=== PATIENT | male | born 1950 | race Caucasian/White ===

== ENCOUNTER 2016-11-10 10:02 | Day surgery (SDC) | payer MEDICARE, OTHER ==
[~2016-11-10] VITALS: Ht 160 cm; Wt 92.7 kg
[~2016-11-10 10:02] MED LIST: AGGR20025 PO; AMLO5 PO; ASPI81 PO; ASPI81TA82 PO; ATOR20TA PO; CELE10TA9 PO; DIOV160T3 PO; PROP40TA27 PO
[2016-11-10 10:30] VITALS: BP 160/86; PULSE 54; RESP 18; TEMP 97.9; O2SAT 98
[2016-11-10] MEDS ORDERED: diphenhydrAMINE HCL 50 MG CAP PO SCH (10:30)
[2016-11-10] MEDS ORDERED: NS 1000P @30 MLS/HR (KVO) IV SCH (10:30)
[2016-11-10] MEDS ORDERED: NITR1SUB3 SL (10:42)
[2016-11-10] MEDS ORDERED: VITATAB43 PO (10:42)
[2016-11-10] MEDS ORDERED: CITA10TA4 PO (10:42)
[2016-11-10] MEDS ORDERED: AGGR20025 PO (10:42)
[2016-11-10] MEDS ORDERED: VALS160T6 PO (10:42)
[2016-11-10] MEDS ORDERED: AMLO-131 PO (10:42)
[2016-11-10] MEDS ORDERED: PROP20TA3 PO (10:42)
[2016-11-10] MEDS ORDERED: ASPI1TAB69 PO (10:42)
[2016-11-10 10:50] LABS: AUTOMATED NEUTROPHIL # 4.7 TH/MM3 (1.8-7.7); BASOPHIL % 0.4 % (0.0-2.0); EOSINOPHIL # 0.2 TH/MM3 (0-0.4); EOSINOPHIL % 2.3 % (0.0-4.0); HEMATOCRIT 43.5 % (39.0-51.0); HEMO FLAGS DIFF FINAL; LYMPH % 31.6 % (9.0-44.0); LYMPHOCYTE # 2.7 TH/MM3 (1.0-4.8); MEAN CELL VOLUME 90.2 FL (80.0-100.0); MEAN CORPUSCULAR HEMOGLOBIN 30.8 PG (27.0-34.0); MEAN CORPUSCULAR HGB CONC 34.2 % (32.0-36.0); MONO % 10.7 % (0.0-8.0); PLATELET COUNT 252 TH/MM3 (150-450); RED BLOOD COUNT 4.82 MIL/MM3 (4.50-5.90); RED CELL DISTRIBUTION WIDTH 13.7 % (11.6-17.2); WHITE BLOOD COUNT 8.6 TH/MM3 (4.0-11.0)
[2016-11-10 11:03] LABS: APTT (PATIENT) 27.9 SEC (24.3-30.1); PROTHROMBIN TIME - PATIENT 10.8 SEC (9.8-11.6)
[2016-11-10 11:06] LABS: BICARBONATE 27.9 MEQ/L (21.0-32.0); POTASSIUM 3.7 MEQ/L (3.5-5.1)
[2016-11-10] MEDS ORDERED: IOHEXOL 350 MG/ML 50 ML BTL (for Cath Lab) OTHER ONE (11:15)
[2016-11-10] MEDS ORDERED: IOHEXOL 350 MG/ML 100 ML BTL (for Cath Lab) OTHER ONE (11:15)
[2016-11-10] MEDS ORDERED: MIDAZOLAM HCL 2 MG/2 ML VIAL ONE ×2 (11:23→12:09)
[2016-11-10] MEDS ORDERED: HEPARIN-NS/PF INJ 500 ML ONE (11:23)
[2016-11-10] MEDS ORDERED: ONDANSETRON HCL 4 MG/2 ML VIAL IV PRN (13:00)
[2016-11-10] MEDS ORDERED: ATROPINE SULFATE 1 MG/ML VIAL IV PRN (13:00)
[2016-11-10] MEDS ORDERED: SODIUM CHLOR 0.9% 1000 ML INJ 1,000 ML IV SCH (13:00)
[2016-11-10] MEDS ORDERED: MISC INFORMATION XX ONE (13:00)
--- NOTE | 2016-11-10 13:15 | MA ---
cc: ROSIBELHUDSON Correa DATE 11/10/2016 DATE OF 1950 PROCEDURE PERFORMED 1. Left heart catheterization 2. Selective right and left coronary angiography. 3. Selective saphenous vein graft and BETHEA angiography 4. Right common femoral artery angiography. 5. Aortogram INDICATION Angina with known coronary artery disease status post CABG and re-do. DESCRIPTION OF PROCEDURE Consent signed. The patient was brought into the cardiac flue dust laborer in fasting state. The right groin was prepped and draped in a sterile fashion. Using 1% lidocaine for local anesthesia and a micropuncture kit, a 5-[place]izen [place] sheath was inserted into the right common femoral artery. Right common femoral artery angiography was performed to confirm position of the sheath. Then selective right and left coronary angiography was performed with JR-4 and a JL-4 diagnostic catheters followed by angiography to the saphenous vein grafts and the left internal mammary artery. Angiography was taken in multiple views. A JR-4 over the wire was introduced into the left ventricle over a wire followed by pressure recordings and pullback. Also an angled pigtail was put in the ascending aorta and an aortogram was done. The patient tolerated the procedure well without complications. Estimated blood loss less than 50 cc. Total contrast 140 cc. The right groin access site was closed with a Vascade closure device. RESULTS LEFT VENTRICLE The left ventricular pressure was 138/12 with an LVEDP of 21. The aortic pressure was 133/63 with a mean pressure of 92. There was no gradient upon pullback from the left ventricle to the aorta. ANGIOGRAPHY 1. Left main: Patent with JUSTIN-3 flow. 2. LAD: 100% occluded. 3. Left circumflex artery: There is a 40% lesion proximally. OM-2 is 100% occluded, OM-1 and OM-3 are diffusely diseased. 4. Right coronary artery: Completely occluded. 5. Ramus: Completely 100% occluded. GRAFT ANGIOGRAPHY 1. BETHEA to the LAD patent. The anastomosis is at the level of the mid LAD segment, thereafter the LAD is patent with distal minimal luminal irregularities and little bit of flow to a diagonal which is diffusely diseased and to the first septal. 2. SVG to ramus is a Y-configuration giving blood supply to the ramus and OM2. This grafts is patent on both directions with JUSTIN-III flow. 3. SVG to right coronary artery is 100% occluded. CONCLUSION 1. Severe [place] vessel coronary artery disease. 2. Three out of four grafts patent. 3. Elevated LVEDP. RECOMMENDATIONS Aggressive medical management for secondary prevention of CAD and optimization for ischemic heart disease. The patient is already on a beta-blockers with adequate heart rate. Start Imdur, long-acting nitrate, and continue statins, TAMMIE inhibitor and aspirin. The patient will be going to the DOC unit for post cath care. If the patient is stable after bed rest, he will be discharged home with follow up with Dr. Wilson as an outpatient. MD KRISSY Perera/BAKARI /12:51 PM /1:06 PM MTDD
[2016-11-10] MEDS ORDERED: ACETAMINOPHEN 325 MG TAB PO PRN (16:15)
--- NOTE | 2016-11-10 20:41 | EKG ---
Date Performed: 11/10/2016 Time Performed: 10:45:58 PTAGE: 66 years EKG: Sinus bradycardia. Nonspecific ST-T wave changes Compared to prior tracing no significant c nallelye Abnormal ECG PREVIOUS TRACING : 12/09/2015 07.44 DOCTOR: Lino Alexander Interpretating Date/Time 11/10/2016 20:39:42
== END 2016-11-10 17:30 | disposition home or self-care (01) ==
LOC: HCAT 10:02 → HDIC 10:03 → HCAT 17:30
PROVIDERS: ATTEND Radiology Vascular & Interventional Radiology
DX: I25.110 Atherosclerotic heart disease of native coronary artery with unstable angina pectoris (principal); I10 Essential (primary) hypertension; E78.00 Pure hypercholesterolemia, unspecified; Z95.1 Presence of aortocoronary bypass graft
CPT/HCPCS: 80048; 85025; 85610; 85730; 93005; 93454; 93567; C1760; C1769; C1893; G0269; J1644; J2250; J3010; Q9967

== ENCOUNTER 2017-07-14 10:42 | Emergency (ER) | payer MEDICARE, OTHER ==
[~2017-07-14] VITALS: Ht 172.7 cm; Wt 97.0 kg
[~2017-07-14 10:42] MED LIST changes: +AMLO-131 PO; -AMLO5 PO; +ASPI1TAB69 PO; -ASPI81 PO; -ASPI81TA82 PO; -ATOR20TA PO; -CELE10TA9 PO; +CITA10TA4 PO; -DIOV160T3 PO; +NITR1SUB3 SL; +PROP20TA3 PO; -PROP40TA27 PO; +VALS160T6 PO; +VITATAB43 PO
[2017-07-14 10:55] VITALS: BP 151/79; PULSE 77; RESP 16; TEMP 99.1
[2017-07-14] MEDS ORDERED: MECLIZINE HCL 25 MG TAB PO ONE (11:15)
[2017-07-14] MEDS ORDERED: ONDANSETRON ODT 4 MG TAB PO/SL ONE (11:15)
[2017-07-14] MEDS ORDERED: SODIUM CHLORIDE 0.9% FLUSH 10 ML FLUSH IVF PRN (11:15)
[2017-07-14] MEDS ORDERED: MECL-62 PO (11:19)
--- NOTE | 2017-07-14 11:20 | PD ---
HPI . Lightheadedness Chief Complaint: Dizziness Time Seen by Provider: 11:04 Travel History International Travel<30 days: No Contact w/Intl Traveler<30days: No Traveled to known affect area: No History of Present Illness HPI Patient presents with a 2 day history of lightheadedness. His symptoms wax and wane. They did not ever go completely away. Symptoms are exacerbated by going from the lying to the sitting or the sitting to the standing position. Symptoms are also exacerbated by head movement. Associated symptoms include nausea and palpitations. Symptoms have been mild. He reports a remote history of vertigo and states that the symptoms are similar. He has not taken anything for it prior to arrival. PFSH Past Medical History Arthritis: Yes Anxiety: Yes Depression: Yes Cancer: Yes (SKIN) Cardiac Catheterization: Yes Cardiovascular Problems: Yes High Cholesterol: Yes Chest Pain: Yes Cerebrovascular Accident: Yes Coronary Artery Disease: Yes Diabetes: Yes (PRE) Diminished Hearing: No Endocrine: No Gastrointestinal Disorders: No Genitourinary: No Hypertension: Yes Immune Disorder: No Musculoskeletal: No Neurologic: No Psychiatric: Yes Reproductive: No Respiratory: No Immunizations Current: No Myocardial Infarction: Yes Past Surgical History Cardiac Surgery: Yes (CABG 2001, 1992) Coronary Artery Bypass Graft: Yes (IN 1992 X 3 ,IN 2001 X 4 .) Other Surgery: Yes Social History Alcohol Use: Yes (DRINK 3 X A WEEK) Tobacco Use: No (QUIT 14 YEARS AGO ) Substance Use: No Allergies-Medications (Allergen,Severity, Reaction): Coded Allergies: clopidogrel (Unverified Allergy, Severe, Rash, 07/14/17) SEVERE ITCHING penicillin G (Unverified Allergy, Mild, A CHILD, 07/14/17) Reported Meds & Prescriptions Reported Meds & Active Scripts Active Meclizine (Meclizine HCl) 25 Mg Tab 25 Mg PO TID PRN Reported Gabapentin 100 Mg Cap 100 Mg PO TID Ranexa ER 12 HR (Ranolazine) 500 Mg Tab 500 Mg PO BID Isosorbide Mononitrate ER (Isosorbide Mononitrate) 30 Mg Kim 30 Mg PO DAILY B-12 (Cyanocobalamin) 1,000 Mcg Subl 1,000 Mcg SL DAILY Dipyridamole-Aspirin 200-25 Mg Cap 1 Cap PO BID Valsartan-Hydrochlorothiazide 160-25 Mg Tab 1 Tab PO DAILY Propranolol (Propranolol HCl) 20 Mg Tab 20 Mg PO Q8HR Nitroglycerin SL (Nitroglycerin) 0.4 Mg Subl 0.4 Mg SL DIRECTED PRN ONE TABLET UNDER THE TONGUE NEEDED FOR CHEST PAIN, MAY REPEAT EVERY FIVE MINUTES FOR A TOTAL OF 3 DOSES OR CALL 911 IF NO RELIEF Citalopram (Citalopram Hydrobromide) 10 Mg Tab 10 Mg PO DAILY Amlodipine-Atorvastatin 10-20 Mg Tab 1 Tab PO DAILY Review of Systems Except as stated in HPI: all other systems reviewed are Neg General / Constitutional: No: Fever, Chills Eyes: No: Diploplia, Blurred Vision HENT: Positive: Lightheadedness, No: Headaches Cardiovascular: Positive: Palpitations, No: Chest Pain or Discomfort Respiratory: No: Shortness of Breath Gastrointestinal: Positive: Nausea, No: Vomiting, Diarrhea, Abdominal Pain Neurologic: Positive: Dizziness, Tremor (chronic intention tremor), No: Headache, Change in Mentation, Slurred Speech Physical Exam Narrative GENERAL: Healthy-appearing man who is awake and alert in no acute distress. SKIN: warm/dry. Good color. HEAD: Normocephalic. Atraumatic. EYES: Pupils equal and round. No scleral icterus. No injection or drainage. No nystagmus. ENT: No nasal bleeding or discharge. Mucous membranes pink and moist. NECK: Trachea midline. Full range of motion without pain.. CARDIOVASCULAR: Regular rate and rhythm. Heart sounds are normal. RESPIRATORY: No accessory muscle use. Clear to auscultation. Breath sounds equal bilaterally. GASTROINTESTINAL: Abdomen soft. Nontender. Bowel sounds present. Nondistended. MUSCULOSKELETAL: No obvious deformities. NEUROLOGICAL: Awake and alert. No obvious cranial nerve deficits. Motor grossly within normal limits. Normal speech. He is unable to do finger-nose- finger exam due to his intention tremor. He states that this is his baseline. PSYCHIATRIC: Appropriate mood and affect; insight and judgment normal. Data Data Last Documented VS Vital Signs Date Time Temp Pulse Resp B/P (MAP) Pulse Ox O2 Delivery O2 Flow Rate FiO2 07/14/17 11:39 96 Room Air 07/14/17 10:55 99.1 77 16 151/79 (103) Orders Orders Basic Metabolic Panel (Bmp) (07/14/17 11:12) Complete Blood Count With Diff (07/14/17 11:12) Magnesium (Mg) (07/14/17 11:12) Troponin I (07/14/17 11:12) Ct Brain W/O Iv Contrast(Rout) (07/14/17 11:12) Ecg Monitoring (07/14/17 11:12) Iv Access Insert/Monitor (07/14/17 11:12) Oximetry (07/14/17 11:12) Meclizine (Antivert) (07/14/17 11:15) Ondansetron Odt (Zofran Odt) (07/14/17 11:15) Sodium Chloride 0.9% Flush (Ns Flush) (07/14/17 11:15) Labs Laboratory Tests Test 07/14/17 11:14 White Blood Count 7.8 TH/MM3 Red Blood Count 4.50 MIL/MM3 Hemoglobin 13.8 GM/DL Hematocrit 42.4 % Mean Corpuscular Volume 94.1 FL Mean Corpuscular Hemoglobin 30.7 PG Mean Corpuscular Hemoglobin Concent 32.6 % Red Cell Distribution Width 13.3 % Platelet Count 216 TH/MM3 Mean Platelet Volume 7.9 FL Neutrophils (%) (Auto) 77.8 % Lymphocytes (%) (Auto) 11.8 % Monocytes (%) (Auto) 7.4 % Eosinophils (%) (Auto) 2.7 % Basophils (%) (Auto) 0.3 % Neutrophils # (Auto) 6.1 TH/MM3 Lymphocytes # (Auto) 0.9 TH/MM3 Monocytes # (Auto) 0.6 TH/MM3 Eosinophils # (Auto) 0.2 TH/MM3 Basophils # (Auto) 0.0 TH/MM3 CBC Comment DIFF FINAL Differential Comment Blood Urea Nitrogen 16 MG/DL Creatinine 1.00 MG/DL Random Glucose 134 MG/DL Calcium Level 8.8 MG/DL Magnesium Level 2.0 MG/DL Sodium Level 139 MEQ/L Potassium Level 3.6 MEQ/L Chloride Level 103 MEQ/L Carbon Dioxide Level 28.3 MEQ/L Anion Gap 8 MEQ/L Estimat Glomerular Filtration Rate 75 ML/MIN Troponin I LESS THAN 0.02 NG/ML MDM Medical Decision Making Medical Screen Exam Complete: Yes Emergency Medical Condition: Yes Medical Record Reviewed: Yes (medical history is significant for HTN, HL, previous [place] s/p both PTCA and CABG, CVA) Interpretation(s) EKG shows a normal sinus rhythm with no acute ischemic change. Differential Diagnosis Differential diagnosis of dizziness includes but is not limited to vertigo, dehydration, acute blood loss, sepsis, ACS Narrative Course This patient presents with a 2 day history of dizziness. He states that it feels similar to previous vertigo. I will give him meclizine and Zofran. Cardiac enzymes, CBC, electrolytes, glucose and CT of his brain will be done to rule out a more serious etiology for the dizziness. CBC & BMP Diagram 07/14/17 11:14 Calcium Level 8.8, Magnesium Level 2.0 trop < 0.02 CT>>Moderate posterior fossa vascular calcifications with old ischemic changes left cerebellar hemisphere. Negative for acute process. The patient continues to complain with some exacerbation of his symptoms with certain movements. He looks good. He is stable for discharge to home with outpatient treatment for vertigo. Diagnosis Primary Impression: Vertigo Patient Instructions: General Instructions, Vertigo (DC) Med/Other Pt SpecificInfo: Prescription(s) given Scripts Meclizine (Meclizine) 25 Mg Tab 25 MG PO TID Y for VERTIGO, #30 TAB 0 Refills Prov: Shanti Vázquez MD 07/14/17 Disposition: 01 DISCHARGE HOME Condition: Stable Shanti Vázquez MD Jul 14, 2017 11:20
[2017-07-14 11:21] LABS: AUTOMATED NEUTROPHIL # 6.1 TH/MM3 (1.8-7.7); BASOPHIL % 0.3 % (0.0-2.0); EOSINOPHIL # 0.2 TH/MM3 (0-0.4); EOSINOPHIL % 2.7 % (0.0-4.0); HEMATOCRIT 42.4 % (39.0-51.0); HEMOGLOBIN 13.8 GM/DL (13.0-17.0); LYMPH % 11.8 % (9.0-44.0); LYMPHOCYTE # 0.9 TH/MM3 (1.0-4.8); MEAN CELL VOLUME 94.1 FL (80.0-100.0); MEAN CORPUSCULAR HEMOGLOBIN 30.7 PG (27.0-34.0); MEAN CORPUSCULAR HGB CONC 32.6 % (32.0-36.0); MEAN PLATELET VOLUME 7.9 FL (7.0-11.0); MONO % 7.4 % (0.0-8.0); MONOCYTE # 0.6 TH/MM3 (0-0.9); NEUT % 77.8 % (16.0-70.0); PLATELET COUNT 216 TH/MM3 (150-450); RED CELL DISTRIBUTION WIDTH 13.3 % (11.6-17.2); WHITE BLOOD COUNT 7.8 TH/MM3 (4.0-11.0)
[2017-07-14 11:28] LABS: CHLORIDE 103 MEQ/L (98-107); SODIUM (NA) 139 MEQ/L (136-145)
[2017-07-14 11:30] LABS: CALCIUM 8.8 MG/DL (8.5-10.1)
[2017-07-14 11:31] LABS: BICARBONATE 28.3 MEQ/L (21.0-32.0); BLOOD UREA NITROGEN 16 MG/DL (7-18); GLUCOSE,RANDOM 134 MG/DL (74-106)
[2017-07-14 11:34] LABS: GLOMERULAR FILTRATION RATE 75 ML/MIN (>89)
[2017-07-14 11:39] VITALS: O2SAT 96
[2017-07-14 11:39] LABS: TROPONIN I LESS THAN 0.02 NG/ML (0.02-0.05)
[2017-07-14] MEDS ORDERED: CYAN100025 SL (11:45)
[2017-07-14] MEDS ORDERED: ASPI1CAP PO (11:45)
[2017-07-14] MEDS ORDERED: RANO500 PO (11:45)
[2017-07-14] MEDS ORDERED: GABA100C4 PO (11:45)
[2017-07-14] MEDS ORDERED: ISOS30TA3 PO (11:45)
--- NOTE | 2017-07-14 11:50 | RADRPT ---
EXAM DATE/TIME: 07/14/2017 11:35 [facility] COMPARISON: CT BRAIN W/O CONTRAST, December 09, 2015, 7:30. INDICATIONS : Dizziness, cough. RADIATION DOSE: 59.86 CTDIvol (mGy) MEDICAL HISTORY : Cardiovascular disease. Cerebrovascular disease. Hypercholesterolemia.MO, HTN SURGICAL HISTORY : CABG ENCOUNTER: Initial ACUITY: 2 days PAIN SCALE: 0/10 LOCATION: cranial TECHNIQUE: Multiple contiguous axial images were obtained of the head. Using automated exposure control and adj ustment of the mA and/or kV according to patient size, radiation dose was kept as low as reasonably a chievable to obtain optimal diagnostic quality images. DICOM format image data is available electro nically for review and comparison. FINDINGS: CEREBRUM: The ventricles are normal for age. No evidence of midline shift, mass lesion, hemorrhage or acute in farction. No extra-axial fluid collections are seen. POSTERIOR FOSSA: Old ischemic changes left cerebellar hemisphere. The 4th ventricle is midline. The cerebellopontine angle is unremarkable. Moderate vascular calcifications are evident in both vertebral arteries. EXTRACRANIAL: The visualized portion of the orbits is intact. SKULL: The calvaria is intact. No evidence of skull fracture. CONCLUSION: Moderate posterior fossa vascular calcifications with old ischemic changes left cerebellar hemisphere . Negative for acute process. Memo Harris MD FACR on July 14, 2017 at 11:47 Board Certified Radiologist. This report was verified electronically.
[2017-07-14 12:17] VITALS: BP 129/69
--- NOTE | 2017-07-14 16:49 | EKG ---
Date Performed: 07/14/2017 Time Performed: 10:47:58 PTAGE: 66 years EKG: Sinus rhythm LOW QRS VOLTAGE IN PRECORDIAL LEADS NONSPECIFIC T-WAVE ABNORMALITY BORDERLINE ECG PREVIOUS TRACING : 11/10/2016 10.45 Compared to prior tracing no significant change DOCTOR: Pratibha Arnett Interpretating Date/Time 07/14/2017 16:48:02
== END 2017-07-14 12:18 | disposition home or self-care (01) ==
LOC: PHED 10:42
DX: R42 Dizziness and giddiness (principal); I10 Essential (primary) hypertension; E78.5 Hyperlipidemia, unspecified; R11.0 Nausea; R00.2 Palpitations; R94.31 Abnormal electrocardiogram [ECG] [EKG]; E11.9 Type 2 diabetes mellitus without complications; I25.10 Atherosclerotic heart disease of native coronary artery without angina pectoris; Z86.73 Personal history of transient ischemic attack (TIA), and cerebral infarction without residual deficits
CPT/HCPCS: 70450; 80048; 83735; 84484; 85025; 93005; 99285

== ENCOUNTER 2017-07-20 09:06 | Observation (INO) | payer MEDICARE, OTHER ==
[~2017-07-20] VITALS: Ht 172.7 cm; Wt 92.0 kg
[~2017-07-20 09:06] MED LIST changes: -AGGR20025 PO; +ASPI1CAP PO; -ASPI1TAB69 PO; +CYAN100025 SL; +GABA100C4 PO; +ISOS30TA3 PO; +MECL-62 PO; +RANO500 PO; -VITATAB43 PO
[2017-07-20 09:14] VITALS: BP 118/78; PULSE 62; RESP 22; TEMP 98; O2SAT 99
[2017-07-20 09:27] VITALS: O2SAT 98
[2017-07-20] MEDS ORDERED: SODIUM CHLORIDE 0.9% FLUSH 10 ML FLUSH IVF PRN (09:30)
[2017-07-20] MEDS ORDERED: SODIUM CHLORID 0.9% 500 ML INJ 500 ML IV ONE (09:30)
[2017-07-20 09:44] LABS: AUTOMATED NEUTROPHIL # 6.3 TH/MM3 (1.8-7.7); BASOPHIL % 0.2 % (0.0-2.0); EOSINOPHIL # 0.2 TH/MM3 (0-0.4); EOSINOPHIL % 2.4 % (0.0-4.0); HEMATOCRIT 39.9 % (39.0-51.0); HEMOGLOBIN 13.7 GM/DL (13.0-17.0); LYMPH % 26.2 % (9.0-44.0); LYMPHOCYTE # 2.6 TH/MM3 (1.0-4.8); MEAN CELL VOLUME 92.1 FL (80.0-100.0); MEAN CORPUSCULAR HEMOGLOBIN 31.7 PG (27.0-34.0); MEAN CORPUSCULAR HGB CONC 34.4 % (32.0-36.0); MEAN PLATELET VOLUME 7.9 FL (7.0-11.0); MONO % 8.4 % (0.0-8.0); MONOCYTE # 0.8 TH/MM3 (0-0.9); NEUT % 62.8 % (16.0-70.0); PLATELET COUNT 194 TH/MM3 (150-450); RED BLOOD COUNT 4.33 MIL/MM3 (4.50-5.90); RED CELL DISTRIBUTION WIDTH 13.3 % (11.6-17.2)
[2017-07-20 09:53] LABS: INTERNATIONAL NORMALIZED RATIO 1.1 RATIO; PROTHROMBIN TIME - PATIENT 10.7 SEC (9.8-11.6)
--- NOTE | 2017-07-20 09:54 | RADRPT ---
EXAM DATE/TIME: 07/20/2017 09:31 [facility] COMPARISON: CHEST SINGLE AP, December 09, 2015, 7:48. INDICATIONS : Short of breath, near syncope, no chest pain, coughing MEDICAL HISTORY : Myocardial infarction. Cardiovascular disease. Stroke. SURGICAL HISTORY : CABG. ENCOUNTER: Initial ACUITY: 1 day PAIN SCORE: 0/10 LOCATION: Bilateral chest FINDINGS: A single view of the chest demonstrates the lungs to be symmetrically aerated without evidence of mas s, infiltrate or effusion. The cardiomediastinal contours are unremarkable. The patient is again not ed to be status post median sternotomy for bypass grafting procedure. There is no perihilar edema. Th ere are multiple overlying electrocardiogram leads. CONCLUSION: No acute disease. There is no evidence of pulmonary edema. Jerome Lara MD on July 20, 2017 at 9:52 Board Certified Radiologist. This report was verified electronically.
--- NOTE | 2017-07-20 10:09 | RADRPT ---
EXAM DATE/TIME: 07/20/2017 09:46 [facility] COMPARISON: MRI BRAIN W/O CONTRAST, December 09, 2015, 10:10. CT BRAIN W/O CONTRAST, July 14, 2017, 11:35. INDICATIONS : Syncopal episode. RADIATION DOSE: 37.57 CTDIvol (mGy) MEDICAL HISTORY : Stroke. Cardiovascular disease Hypertension. Diabetes. SURGICAL HISTORY : CABG Skin cancer. ENCOUNTER: Initial ACUITY: 1 day PAIN SCALE: 0/10 LOCATION: cranial TECHNIQUE: Multiple contiguous axial images were obtained of the head. Using automated exposure control and adj ustment of the mA and/or kV according to patient size, radiation dose was kept as low as reasonably a chievable to obtain optimal diagnostic quality images. DICOM format image data is available electro nically for review and comparison. FINDINGS: CEREBRUM: The ventricles are normal for age. No evidence of midline shift, mass lesion, hemorrhage or acute in farction. No extra-axial fluid collections are seen. POSTERIOR FOSSA: The cerebellum and brainstem are stable in appearance. There is an old small area of infarction invol ving the left cerebral hemisphere. The 4th ventricle is midline. The cerebellopontine angle is unrem arkable. EXTRACRANIAL: The visualized portion of the orbits is intact. SKULL: The calvaria is intact. No evidence of skull fracture. CONCLUSION: 1. No acute hemorrhage, mass or evidence of acute infarction. 2. 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 Jerome Lara MD on July 20, 2017 at 10:05 Board Certified Radiologist. This report was verified electronically.
[2017-07-20 10:23] LABS: BICARBONATE 24.1 MEQ/L (21.0-32.0); BLOOD UREA NITROGEN 15 MG/DL (7-18); CALCIUM 8.5 MG/DL (8.5-10.1); CHLORIDE 106 MEQ/L (98-107); CREATININE 0.89 MG/DL (0.60-1.30); GLOMERULAR FILTRATION RATE 85 ML/MIN (>89); GLUCOSE,RANDOM 126 MG/DL (74-106); MAGNESIUM 1.8 MG/DL (1.5-2.5); SODIUM (NA) 140 MEQ/L (136-145)
[2017-07-20 10:27] LABS: TROPONIN I LESS THAN 0.02 NG/ML (0.02-0.05)
--- NOTE | 2017-07-20 10:51 | PD ---
HPI Chief Complaint: Syncope/Near-Syncope Time Seen by Provider: 09:19 Travel History International Travel<30 days: No Contact w/Intl Traveler<30days: No Traveled to known affect area: No History of Present Illness HPI 66-year-old male came to the emergency room with history of syncopal episode while he was at a restaurant and started to eat his breakfast. Patient says that he has been feeling little woozy yesterday and today. Patient says that he has been diagnosed with sinusitis by his primary care and was started on some medications to days ago. Patient does not know the name of the medications. But has not felt 100% since then. Patient was also seen in [facility] emergency room 6 days ago for dizziness and was discharged home on meclizine. Patient denies any chest pain. He says that he recalls sitting down and starting to eat his breakfast. 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 However the next thing he remembers is sitting in a chair with people around him. 911 was called and as per EMS his color was extremely pale and patient was very diaphoretic. They came emergently. His heart rate was in the 50s and blood pressure of 118 systolic. When patient came in he was little shaky but answering questions appropriately but slowly. Once again denied chest pain or any headache. Patient has history of coronary artery disease. He had CABG the last one being in 2011. His hvac journeyman is Dr. Wilson. He had a stress test done last year which was negative as per the patient. [facility] Past Medical History Narrative Medical List of his past medical, surgical, social and family history is reviewed from the nursing note. Arthritis: Yes Anxiety: Yes Depression: Yes Cancer: Yes (SKIN) Cardiac Catheterization: Yes Cardiovascular Problems: Yes High Cholesterol: Yes Chest Pain: Yes Cerebrovascular Accident: Yes (2016) Coronary Artery Disease: Yes Diabetes: No (PRE) Diminished Hearing: Yes (bilateral hearing aids) Endocrine: No Gastrointestinal Disorders: No Genitourinary: No Hypertension: Yes Immune Disorder: No Musculoskeletal: No Neurologic: No Psychiatric: Yes Reproductive: No Respiratory: No Immunizations Current: No Myocardial Infarction: Yes Influenza Vaccination: Yes Past Surgical History Cardiac Surgery: Yes (CABG 2001, 1992) Coronary Artery Bypass Graft: Yes (IN 1992 X 3 ,IN 2002 X 4 .) Other Surgery: Yes Social History Alcohol Use: Yes (3 drinks/month) Tobacco Use: No (QUIT 14 YEARS AGO ) Substance Use: No Allergies-Medications (Allergen,Severity, Reaction): Coded Allergies: clopidogrel (Unverified Allergy, Severe, Rash, 07/14/17) SEVERE ITCHING penicillin G (Unverified Allergy, Mild, A CHILD, 07/14/17) Comments List of his allergies reviewed from the nursing note. Reported Meds & Prescriptions Reported Meds & Active Scripts Active Meclizine (Meclizine HCl) 25 Mg Tab 25 Mg PO TID PRN Reported Tessalon Perles (Benzonatate) 100 Mg Cap 200 Mg PO TID PRN Gabapentin 100 Mg Cap 100 Mg PO TID Ranexa ER 12 HR (Ranolazine) 500 Mg Tab 500 Mg PO BID Isosorbide Mononitrate ER (Isosorbide Mononitrate) 30 Mg Kim 30 Mg PO DAILY B-12 (Cyanocobalamin) 1,000 Mcg Subl 1,000 Mcg SL DAILY Dipyridamole-Aspirin 200-25 Mg Cap 1 Cap PO BID Propranolol (Propranolol HCl) 20 Mg Tab 20 Mg PO Q8HR Nitroglycerin SL (Nitroglycerin) 0.4 Mg Subl 0.4 Mg SL DIRECTED PRN ONE TABLET UNDER THE TONGUE NEEDED FOR CHEST PAIN, MAY REPEAT EVERY FIVE MINUTES FOR A TOTAL OF 3 DOSES OR CALL 911 IF NO RELIEF Citalopram (Citalopram Hydrobromide) 10 Mg Tab 10 Mg PO DAILY Amlodipine-Atorvastatin 10-20 Mg Tab 1 Tab PO DAILY Narrative Medication List of his home medications reviewed from the nursing note. Review of Systems Except as stated in HPI: all other systems reviewed are Neg Cardiovascular: Positive: Syncope Physical Exam Narrative GENERAL: Awake, alert, looks older than his age, moderate distress, fine tremors SKIN: Focused skin assessment warm/dry. HEAD: Atraumatic. Normocephalic. EYES: Pupils equal and round. No scleral icterus. No injection or drainage. ENT: No nasal bleeding or discharge. Mucous membranes pink and moist. NECK: Trachea midline. No JVD. CARDIOVASCULAR: Regular rate and rhythm. No murmur appreciated. RESPIRATORY: No accessory muscle use. Clear to auscultation. Breath sounds equal bilaterally. GASTROINTESTINAL: Abdomen soft, non-tender, nondistended. Hepatic and splenic margins not palpable. MUSCULOSKELETAL: No obvious deformities. No clubbing. No cyanosis. No edema. NEUROLOGICAL: Awake and alert. No obvious cranial nerve deficits. Motor grossly within normal limits. Normal speech. PSYCHIATRIC: Appropriate mood and affect; insight and judgment normal. Data Data Last Documented VS Vital Signs Date Time Temp Pulse Resp B/P (MAP) Pulse Ox O2 Delivery O2 Flow Rate FiO2 07/20/17 09:27 98 Room Air 07/20/17 09:27 07/20/17 09:14 98.0 62 22 Orders Orders Electrocardiogram (07/20/17 09:19) Basic Metabolic Panel (Bmp) (07/20/17 09:19) B-Type Natriuretic Peptide (07/20/17 09:19) Ckmb (Isoenzyme) Profile (07/20/17 09:19) Complete Blood Count With Diff (07/20/17 09:19) Magnesium (Mg) (07/20/17 09:19) Prothrombin Time / Inr (Pt) (07/20/17 09:19) Act Partial Throm Time (Ptt) (07/20/17 09:19) Troponin I (07/20/17 09:19) Chest, Single Ap (07/20/17 09:19) Ecg Monitoring (07/20/17 09:19) Bilateral Bp Monitoring (07/20/17 09:19) Iv Access Insert/Monitor (07/20/17 09:19) Oximetry (07/20/17 09:19) Oxygen Administration (07/20/17 09:19) Sodium Chloride 0.9% Flush (Ns Flush) (07/20/17 09:30) Sodium Chlorid 0.9% 500 Ml Inj (Ns 500 M (07/20/17 09:30) Ct Brain W/O Iv Contrast(Rout) (07/20/17 ) Admit Order (Ed Use Only) (07/20/17 10:59) Labs Laboratory Tests Test 07/20/17 09:25 White Blood Count 10.0 TH/MM3 Red Blood Count 4.33 MIL/MM3 Hemoglobin 13.7 GM/DL Hematocrit 39.9 % Mean Corpuscular Volume 92.1 FL Mean Corpuscular Hemoglobin 31.7 PG Mean Corpuscular Hemoglobin Concent 34.4 % Red Cell Distribution Width 13.3 % Platelet Count 194 TH/MM3 Mean Platelet Volume 7.9 FL Neutrophils (%) (Auto) 62.8 % Lymphocytes (%) (Auto) 26.2 % Monocytes (%) (Auto) 8.4 % Eosinophils (%) (Auto) 2.4 % Basophils (%) (Auto) 0.2 % Neutrophils # (Auto) 6.3 TH/MM3 Lymphocytes # (Auto) 2.6 TH/MM3 Monocytes # (Auto) 0.8 TH/MM3 Eosinophils # (Auto) 0.2 TH/MM3 Basophils # (Auto) 0.0 TH/MM3 CBC Comment DIFF FINAL Differential Comment Prothrombin Time 10.7 SEC Prothromb Time International Ratio 1.1 RATIO Activated Partial Thromboplast Time 23.3 SEC Blood Urea Nitrogen 15 MG/DL Creatinine 0.89 MG/DL Random Glucose 126 MG/DL Calcium Level 8.5 MG/DL Magnesium Level 1.8 MG/DL Sodium Level 140 MEQ/L Potassium Level 3.5 MEQ/L Chloride Level 106 MEQ/L Carbon Dioxide Level 24.1 MEQ/L Anion Gap 10 MEQ/L Estimat Glomerular Filtration Rate 85 ML/MIN Total Creatine Kinase 77 U/L Troponin I LESS THAN 0.02 NG/ML B-Type Natriuretic Peptide 166 PG/ML MDM Medical Decision Making Medical Screen Exam Complete: Yes Emergency Medical Condition: Yes Medical Record Reviewed: Yes Interpretation(s) Twelve-lead EKG was reviewed by me. Normal sinus rhythm, normal axis, bradycardia, prolonged QTC, first-degree AV block. Heart rate of 52 bpm. Differential Diagnosis ACS, arrhythmia, medication induced hypotension Narrative Course 10:50 AM patient was given 250 cc BOLUS. Blood test results and CAT scan are within acceptable limits from acute standpoint. CAT scan does show an old lacunar infarct in the cerebellum. I have discussed with the patient that he would require admission at least for observation. Patient understands. Awaiting for the hospitalist to call back. Procedures EKG Prior to Arrival: Yes Diagnosis Primary Impression: Syncope Qualified Codes: R55 - Syncope and collapse Admitting Information Admitting Physician Requests: Observation Scripts Valsartan (Diovan) 160 Mg Tab 160 MG PO DAILY for Blood Pressure Management, #30 TAB Prov: Shanda Mann PA-C 07/21/17 Brooke Sood MD Jul 20, 2017 10:51
[2017-07-20] MEDS ORDERED: LACTULOSE SYRUP 20 GM/30 ML CUP PO PRN (13:00)
[2017-07-20] MEDS ORDERED: MAGNESIUM HYDROXIDE SUSP 30 ML CUP PO PRN (13:00)
[2017-07-20] MEDS ORDERED: SENNOSIDES 8.6 MG TAB PO PRN (13:00)
[2017-07-20] MEDS ORDERED: NALOXONE HCL 0.4 MG/ML AMP IV PUSH PRN (13:00)
[2017-07-20] MEDS ORDERED: BISACODYL 10 MG SUPP RECTAL PRN (13:00)
[2017-07-20] MEDS ORDERED: ONDANSETRON HCL 4 MG/2 ML VIAL IVP PRN (13:00)
[2017-07-20] MEDS ORDERED: ACETAMINOPHEN 325 MG TAB PO PRN (13:00)
[2017-07-20] MEDS ORDERED: ZOLPIDEM TARTRATE 5 MG TAB PO PRN (13:00)
[2017-07-20] MEDS ORDERED: SODIUM CHLORIDE 0.9% FLUSH 10 ML FLUSH IV FLUSH PRN (13:00)
[2017-07-20] MEDS ORDERED: ENOXAPARIN SODIUM 40 MG/0.4 ML SYRINGE SQ SCH (13:00)
[2017-07-20] MEDS ORDERED: BENZ100 PO (13:24)
[2017-07-20] MEDS ORDERED: DOXY100C PO (13:24)
--- NOTE | 2017-07-20 13:26 | HHI.HP ---
[facility] Primary Care Physician Lori Ward D.O. Admission Diagnosis syncope Diagnoses: (1) Syncope (2) CAD (coronary artery disease) (3) Carotid stenosis (4) HTN (hypertension) Travel History International Travel<30 Days: No Contact w/Intl Traveler <30 Da: No Traveled to Known Affected Are: No History of Present Illness 66M with h/o CABGx2 and TIA presents to the ER after syncopal episode while eating at a restaurant at 10am. He awoke at 6am and took his medications at 6: 30am. He admits that he has been feeling under the weather lately and blames his "sinus infection", though he cannot recall which antibiotic he was prescribed. He had vertigo a week ago that cleared up by last Sunday following two rounds of Eply's maneuvers. He was considering leaving [place], but decided that an overnight on telemetry monitoring would be valuable. His trip rider is Dr. Wilson. Review of Systems Constitutional: COMPLAINS OF: Diaphoretic episodes, Fatigue, DENIES: Chills, Change in appetite Endocrine: DENIES: Heat/cold intolerance Eyes: DENIES: Blurred vision, Diplopia, Vision loss Ears, nose, mouth, throat: DENIES: Tinnitus, Hearing loss Respiratory: COMPLAINS OF: Cough, DENIES: Shortness of breath Cardiovascular: COMPLAINS OF: Syncope, DENIES: Chest pain, Palpitations, Dyspnea on Exertion, Lower Extremity Edema Gastrointestinal: DENIES: Abdominal pain Genitourinary: DENIES: Urinary frequency, Urinary incontinence Hematologic/lymphatic: DENIES: Bruising Neurologic: DENIES: Abnormal gait, Headache, Localized weakness, Paresthesias, Seizures Psychiatric: DENIES: Anxiety, Confusion, Mood changes Past Family Social History Past Medical History CAD, HTN, TIA, Left carotid artery occlusion with 50% occlusion of right Past Surgical History CABG 1992, 2001, Allergies: Coded Allergies: clopidogrel (Unverified Allergy, Severe, Rash, 07/14/17) SEVERE ITCHING penicillin G (Unverified Allergy, Mild, A CHILD, 07/14/17) Family History No known history Social History Denies smoking cigarettes or drinking alcohol Physical Exam Vital Signs Vital Signs Date Time Temp Pulse Resp B/P (MAP) Pulse Ox O2 Delivery O2 Flow Rate FiO2 07/20/17 09:27 98 Room Air 07/20/17 09:27 98 Room Air 07/20/17 09:14 98.0 62 22 118/78 (91) 99 Room Air Physical Exam GENERAL: This is a well-nourished, well-developed patient, in no apparent distress. SKIN: No rashes, ecchymoses or lesions. Cool and dry. HEAD: Atraumatic. Normocephalic. No temporal or scalp tenderness. EYES: Pupils equal round and reactive. Extraocular motions intact. No scleral icterus. No injection or drainage. ENT: Nose without bleeding, purulent drainage or septal hematoma. Throat without erythema, tonsillar hypertrophy or exudate. Uvula midline. Airway patent. NECK: Trachea midline. No JVD or lymphadenopathy. Supple, nontender, no meningeal signs. CARDIOVASCULAR: Regular rate and rhythm without murmurs, gallops, or rubs. RESPIRATORY: Clear to auscultation. Breath sounds equal bilaterally. No wheezes , rales, or rhonchi. GASTROINTESTINAL: Abdomen soft, non-tender, nondistended. No hepato-splenomegaly , or palpable masses. No guarding. MUSCULOSKELETAL: Extremities without clubbing, cyanosis, or edema. No joint tenderness, effusion, or edema noted. No calf tenderness. Negative Homans sign bilaterally. NEUROLOGICAL: Awake and alert. Cranial nerves II through XII intact. Motor and sensory grossly within normal limits. Five out of 5 muscle strength in all muscle groups. Normal speech. Laboratory Laboratory Tests Test 07/20/17 09:25 White Blood Count 10.0 Red Blood Count 4.33 Hemoglobin 13.7 Hematocrit 39.9 Mean Corpuscular Volume 92.1 Mean Corpuscular Hemoglobin 31.7 Mean Corpuscular Hemoglobin Concent 34.4 Red Cell Distribution Width 13.3 Platelet Count 194 Mean Platelet Volume 7.9 Neutrophils (%) (Auto) 62.8 Lymphocytes (%) (Auto) 26.2 Monocytes (%) (Auto) 8.4 Eosinophils (%) (Auto) 2.4 Basophils (%) (Auto) 0.2 Neutrophils # (Auto) 6.3 Lymphocytes # (Auto) 2.6 Monocytes # (Auto) 0.8 Eosinophils # (Auto) 0.2 Basophils # (Auto) 0.0 CBC Comment DIFF FINAL Differential Comment Prothrombin Time 10.7 Prothromb Time International Ratio 1.1 Activated Partial Thromboplast Time 23.3 Blood Urea Nitrogen 15 Creatinine 0.89 Random Glucose 126 Calcium Level 8.5 Magnesium Level 1.8 Sodium Level 140 Potassium Level 3.5 Chloride Level 106 Carbon Dioxide Level 24.1 Anion Gap 10 Estimat Glomerular Filtration Rate 85 Total Creatine Kinase 77 Troponin I LESS THAN 0.02 B-Type Natriuretic Peptide 166 Result Diagram: 07/20/1792407/20/17924 Imaging Last Impressions Chest X-Ray 07/20/17918 Signed Impressions: Service Date/Time: Thursday, July 20, 2017 09:31 - CONCLUSION: No acute disease. There is no evidence of pulmonary edema. Jerome Lara MD Head CT 07/20/17 0000 Signed Impressions: Service Date/Time: Thursday, July 20, 2017 09:46 - CONCLUSION: 1. No acute hemorrhage, mass or evidence of acute infarction. 2. 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 Jerome Lara MD Capreillyi VTE Risk Assessment Caprini VTE Risk Assessment: Mod/High Risk (score >= 2) Caprini Risk Assessment Model Point Value = 1 Point Value = 2 Point Value = 3 Point Value = 5 Age 41-60 Minor surgery BMI > 25 kg/m2 Swollen legs Varicose veins or History of unexplained or recurrent spontaneous Oral contraceptives or hormone replacement Sepsis (< 1 month) Serious lung disease, including pneumonia (< 1 month) Abnormal pulmonary function Acute myocardial infarction Congestive heart failure (< 1 month) History of inflammatory bowel disease Medical patient at bed rest Age 61-74 Arthroscopic surgery Major open surgery (> 45 min) Laparoscopic surgery (> 45 min) Malignancy Confined to bed (> 72 hours) Immobilizing plaster cast Central venous access Age >= 75 History of VTE Family history of VTE Factor V Leiden Prothrombin [id number] Lupus anticoagulant Anticardiolipin antibodies Elevated serum homocysteine Heparin-induced thrombocytopenia Other congenital or acquired thrombophilia Stroke (< 1 month) Elective arthroplasty Hip, pelvis, or leg fracture Acute spinal cord injury (< 1 month) Prophylaxis Regimen Total Risk Factor Score Risk Level Prophylaxis Regimen 0-1 Low Early ambulation 2 Moderate Order ONE of the following: *Sequential Compression Device (SCD) *Heparin 5000 units SQ BID 3-4 Higher Order ONE of the following medications: *Heparin 5000 units SQ TID *Enoxaparin/Lovenox 40 mg SQ daily (WT < 150 kg, CrCl > 30 mL/min) *Enoxaparin/Lovenox 30 mg SQ daily (WT < 150 kg, CrCl > 10-29 mL/min) *Enoxaparin/Lovenox 30 mg SQ BID (WT < 150 kg, CrCl > 30 mL/min) AND/OR *Sequential Compression Device (SCD) 5 or more Highest Order ONE of the following medications: *Heparin 5000 units SQ TID (Preferred with Epidurals) *Enoxaparin/Lovenox 40 mg SQ daily (WT < 150 kg, CrCl > 30 mL/min) *Enoxaparin/Lovenox 30 mg SQ daily (WT < 150 kg, CrCl > 10-29 mL/min) *Enoxaparin/Lovenox 30 mg SQ BID (WT < 150 kg, CrCl > 30 mL/min) AND *Sequential Compression Device (SCD) Assessment and Plan Problem List: (1) Syncope ICD Code: R55 - Syncope and collapse Status: Acute (2) CAD (coronary artery disease) ICD Code: I25.10 - CAD (coronary artery disease) Status: Acute (3) HTN (hypertension) ICD Code: I10 - Essential (primary) hypertension Status: Acute (4) Carotid stenosis ICD Code: I65.29 - Occlusion and stenosis of unspecified carotid artery Status: Acute Assessment and Plan Syncopal Episode ER work up ruled out blood sugar, and any acute neurological events Considering possibility of cardiac causes, an overnight observation was requested Observe on continuous telemetry Cardiology consult Last ECHO and Cartotid US was 11/2015, so will repeat both. Hypertension 3-4 hour delay between when he took his BP meds and when he ate breakfast, consider hypotension related to timing CAD / Dyslipidemia CABGx2, TIA, old lacunar stroke, etc. points to pervasive atherosclerosis DVT Prophylaxis Lovenox Physician Certification 2 Midnight Certification Type: Admission for Inpatient Services (Overnight observation) Order for Inpatient Services Observation stay Estimated LOS (days): 1 1 days is the estimated time the patient will need to remain in the hospital, assuming treatment plan goals are met and no additional complications. Post-Hospital Plan: Home Problem Qualifiers (1) Syncope: Qualified Codes: R55 - Syncope and collapse Darrick Jaime MD Jul 20, 2017 13:26
[2017-07-20 13:33] VITALS: BP 133/74; PULSE 54; RESP 18; TEMP 97.7; O2SAT 98
--- NOTE | 2017-07-20 14:40 | EKG ---
Date Performed: 07/20/2017 Time Performed: 09:16:39 PTAGE: 66 years EKG: SINUS BRADYCARDIA WITH FIRST DEGREE AV BLOCK NONSPECIFIC T-WAVE ABNORMALITY ABNORMAL ECG PREVIOUS TRACING : 07/14/2017 10.47 Since prior tracing, sinus rate is slower. DOCTOR: Calvin Sanabria Interpretating Date/Time 07/20/2017 14:39:21
[2017-07-20 15:51] VITALS: PULSE 55
[2017-07-20 15:55] VITALS: BP 157/83; PULSE 63; RESP 18; TEMP 98; O2SAT 96
--- NOTE | 2017-07-20 16:12 | MB ---
cc: FABY GROSS M.D. DATE OF CONSULTATION: 07/20/2017. REASON FOR CONSULTATION: Evaluation of syncope. HISTORY OF PRESENT ILLNESS: Anthony Thurman is a 66-year-old man who is a patient of my colleague, Dr. Wilson, who has known coronary artery disease. He had a syncopal episode this morning at a restaurant. He says he had not been feeling well the last couple of days. He has had sinusitis and a cough. When he got to the restaurant he was hungry and ordered some food; by the time it came, it really did not look that good to him. He started to get a strange feeling that was overwhelming him. He had one bite of food and the next thing you know he ended up passing out. He was described as being extremely pale and woke up sweaty during the episode. He has been feeling better since this happened and now feels back to normal. He has chronic coronary disease. His symptoms have been stable. He denies any other complaints. MEDICATIONS: His medications prior to admission include: 1. Aggrenox. 2. Amlodipine. 3. Atorvastatin 10-20 daily. 4. Citalopram 10 milligrams daily. 5. Gabapentin 100 milligrams three times a day. 6. Imdur 3 milligrams in the morning. 7. Nitroglycerin PRN. 8. Propranolol 20 milligrams three times a day. 9. Ranexa 500 twice a day. 10. Valsartan / hydrochlorothiazide 160 / 25 daily. 11. Vitamin B12. ALLERGIES: 1. PENICILLIN. 2. PLAVIX. PAST MEDICAL HISTORY: His past medical history includes: 1. Coronary artery disease. He had bypass surgery in 1992 and a re-do bypass in 2001. He underwent cardiac catheterization November 10, 2016. He had occlusion of the left anterior descending and second obtuse marginal branch of the circumflex artery and ramus intermediate branch. He had an open left internal mammary graft to the left anterior descending and an open Y graft to the second obtuse marginal branch to the ramus intermediate branch. The right coronary artery was totally occluded as was the graft. He has been through [facility]. He is on medication management, and his anginal symptoms have been stable. 2. Essential tremor. 3. Hyperlipidemia. 4. Essential hypertension. 5. History of previous myocardial infarction. 6. Previous TIA. PAST SURGICAL HISTORY: 1. Skin cancer removal. FAMILY HISTORY: Family history is positive for hypertension in his mother. SOCIAL HISTORY: He has never smoked. He is a very light drinker. REVIEW OF SYSTEMS: His review of systems is otherwise noncontributory. PHYSICAL EXAMINATION: GENERAL: The physical exam reveals an obese pleasant white male who is in no acute distress. VITAL SIGNS: Charted. HEAD, EYES, EARS, NOSE, THROAT: Unremarkable. NECK: No jugular venous distention. No bruits. CHEST: Clear to auscultation. CARDIAC: S1, S2 regular rhythm, mildly bradycardic. No murmur. ABDOMEN: Abdomen soft and nontender. EXTREMITIES: No cyanosis, clubbing or edema. EKGS: EKG shows sinus rhythm at 52 beats per minute, corrected Q-T interval is 440 milliseconds. There is a first-degree AV block with a VA interval of 221 milliseconds. LABORATORY WORK: His hematocrit is 39.9. Troponin was less than 0.02. BNP was 166. Creatinine 0.89. IMAGING STUDIES: Head CT showed old small area of infarction involving the left cerebellar hemisphere. Chest x-ray showed no acute disease. IMPRESSION: Syncope most likely vasovagal. This would explain the fact that it occurred at mealtime, the quick recovery with no residual hypotension, bradycardia, et cetera. RECOMMENDATIONS: 1. Extensive education of vasovagal syncope. 2. Currently on telemetry. If he remains stable, I would be okay for him to be discharged tomorrow. 3. I would advise discontinuing his hydrochlorothiazide and that means instead of taking Valsartan 160 milligrams with 25 milligrams of hydrochlorothiazide, to take Valsartan 160 milligrams without any hydrochlorothiazide. We know that diuretics will make him more susceptible to a repeat episode. MD MC Huggins/KAY /2:36 PM /3:42 PM
[2017-07-20 19:53] VITALS: BP 133/64; PULSE 63; RESP 18; TEMP 97.9; O2SAT 95
[2017-07-20] MEDS: DOCUSATE SODIUM 50 MG/SENNA 8.6 MG TAB PO SCH (21:00)
[2017-07-20] MEDS ORDERED: SODIUM CHLORIDE 0.9% FLUSH 10 ML FLUSH IV FLUSH SCH (21:00)
[2017-07-21 00:12] VITALS: BP 141/67; PULSE 66; RESP 20; TEMP 96.1
[2017-07-21 03:19] VITALS: BP 167/76; PULSE 108; RESP 18; TEMP 98.1; O2SAT 94
[2017-07-21 07:52] VITALS: BP 157/85; PULSE 59; RESP 22; TEMP 97.5; O2SAT 96
[2017-07-21 08:00] VITALS: PULSE 60
[2017-07-21] MEDS ORDERED: VALSARTAN 160 MG TAB PO SCH (09:00)
[2017-07-21] MEDS: DOCUSATE SODIUM 50 MG/SENNA 8.6 MG TAB PO SCH (09:00)
[2017-07-21] MEDS ORDERED: DIOV160T6 PO (09:33)
--- NOTE | 2017-07-21 09:34 | HHI.DCPOC ---
Discharge Care Plan Diagnosis: (1) Syncope (2) CAD (coronary artery disease) (3) HTN (hypertension) (4) Carotid stenosis (5) Hypertension (6) Hyperlipidemia Goals to Promote Your Health * To prevent worsening of your condition and complications * To maintain your health at the optimal level Directions to Meet Your Goals Take your medications as prescribed Follow your dietary instruction Follow activity as directed Keep your appointments as scheduled Take your immunizations and boosters as scheduled If your symptoms worsen call your PCP, if no PCP go to Urgent Care Center or Emergency Room Smoking is Dangerous to Your Health. Avoid second hand smoke Call the 24-hour hour crisis hotline for domestic abuse at Shanda Mann PA-C Jul 21, 2017 09:34
--- NOTE | 2017-07-21 09:46 | HHI.PR ---
Subjective Remarks Follow up for syncope. The patient reports feeling well since his arrival. No further syncopal episodes. Denies any lightheadedness, dizziness, chest pain, palpitations, or shortness of breath. He states he has been dealing with a sinus issue for 3-4 days now which he believes attributed to the syncopal event. He states he hasn't been eating normally because of the sinusitis. Today he has been ambulating the unit without difficulty. He wants to go home. He states he has upcoming appointments in July with his PCP Dr. Ward, commercial photographer Dr. Wilson, and neurologist Dr. Hoffman. Objective Vitals Vital Signs Date Time Temp Pulse Resp B/P (MAP) Pulse Ox O2 Delivery O2 Flow Rate FiO2 07/21/17 07:52 97.5 59 22 157/85 (109) 96 07/21/17 03:19 98.1 108 18 167/76 (106) 94 07/21/17 00:12 96.1 66 20 141/67 (91) 07/20/17 19:53 97.9 63 18 133/64 (87) 95 07/20/17 15:55 98.0 63 18 157/83 (107) 96 07/20/17 15:51 55 07/20/17 13:33 97.7 54 18 133/74 (93) 98 07/20/17 13:20 I/O 07/20/17 07/20/17 07/20/17 07/21/17 07/21/17 07/21/17 07:00 15:00 23:00 07:00 15:00 23:00 Intake Total 500 ml Balance 500 ml Intake IV Total 500 ml # Voids 2 Result Diagram: 07/20/1792407/20/17924 Imaging Last Impressions Chest X-Ray 07/20/17918 Signed Impressions: Service Date/Time: Thursday, July 20, 2017 09:31 - CONCLUSION: No acute disease. There is no evidence of pulmonary edema. Jerome Lara MD Head CT 07/20/17 0000 Signed Impressions: Service Date/Time: Thursday, July 20, 2017 09:46 - CONCLUSION: 1. No acute hemorrhage, mass or evidence of acute infarction. 2. 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 Jerome Lara MD Objective Remarks GENERAL: Well-nourished, well-developed pleasant male patient in NAD. SKIN: Warm and dry. No rash. HEENT: Normocephalic. Atraumatic.Pupils equal and round. Mucous membranes pink and moist. NECK: Supple. Trachea midline. CARDIOVASCULAR: Regular rate and rhythm. S1, S2 noted. No murmur appreciated. RESPIRATORY: No accessory muscle use. Clear to auscultation. Breath sounds equal bilaterally. GASTROINTESTINAL: Abdomen soft, non-tender, nondistended. Normoactive bowel sounds x4. MUSCULOSKELETAL: No obvious deformities. Extremities without clubbing, cyanosis , or edema. NEUROLOGICAL: Awake and alert. No obvious cranial nerve deficits. Motor grossly within normal limits. Moves all extremities spontaneously. Normal speech. PSYCHIATRIC: Appropriate mood and affect; insight and judgment normal. Medications and IVs Current Medications Medications (Trade) Dose Ordered Sig/Arelis Route Start Time Stop Time Status Last Admin (NS Flush) 2 ml UNSCH PRN IV FLUSH 07/20/17 13:00 (NS Flush) 2 ml BID IV FLUSH 07/20/17 21:00 07/20/17 21:48 (Tylenol) 650 mg Q4H PRN PO 07/20/17 13:00 (Zofran Inj) 4 mg Q6H PRN IVP 07/20/17 13:00 (Ambien) 5 mg HS PRN PO 07/20/17 13:00 (Lovenox Inj) 40 mg Q24H SQ 07/20/17 13:00 (Narcan Inj) 0.4 mg UNSCH PRN IV PUSH 07/20/17 13:00 (Nurys-Colace) 1 tab BID PO 07/20/17 21:00 (Milk Of Magnesia Liq) 30 ml Q12H PRN PO 07/20/17 13:00 (Senokot) 17.2 mg Q12H PRN PO 07/20/17 13:00 (Dulcolax Supp) 10 mg DAILY PRN RECTAL 07/20/17 13:00 (Lactulose Liq) 30 ml DAILY PRN PO 07/20/17 13:00 (Diovan) 160 mg DAILY PO 07/21/17 09:00 07/21/17 10:16 A/P Problem List: (1) Syncope ICD Code: R55 - Syncope and collapse Status: Acute (2) CAD (coronary artery disease) ICD Code: I25.10 - CAD (coronary artery disease) Status: Acute (3) HTN (hypertension) ICD Code: I10 - Essential (primary) hypertension Status: Acute (4) Carotid stenosis ICD Code: I65.29 - Occlusion and stenosis of unspecified carotid artery Status: Acute Assessment and Plan 66-year-old male with history of CAD s/p CABG, TIA, HTN, left carotid artery occlusion and right carotid 50% occlusion, presents after an acute syncopal episode Syncope: strongly suspect vasovagal, in combination with recent sinusitis and poor oral intake. -Head CT images reviewed, shows no acute findings; old small infarct of left cerebellar hemisphere -CXR images reviewed, no acute findings -Monitored on telemetry, no acute events except for bradycardia HR 48 only while sleeping; HR increases appropriately upon awakening/ambulation -Consult cardiology, seen by Dr. Alexander, recommended discontinuing HCTZ, monitor in observation overnight and if stable, ok to d/c -No further symptoms, stable for discharge, patient has appointments with PCP , Molding Press Operator Dr. Wilson, and Neurologist Dr. Hoffman within the next month -Patient instructed to discuss with Dr. Wilson possible Holter vs Event monitor as outpatient CAD s/p CABG: chronic, stable, no complaints of chest pain. BNP 166. -continue patient's home medications including BB, Imdur, Ranexa, ARB -outpatient f/up with cardiology as scheduled Hypertension: chronic. Patient keeps BP log at home, systolic ranges from 120s- 140s. -discontinued HCTZ per cardiology recommendations -continue patient's valsartan, amlodipine, propranolol -patient instructed to keep a BP log every morning and report findings to PCP and commercial photographer, patient verbalized understanding TIA: chronic, stable -Head CT unremarkable for any acute findings -continue patient's aggrenox -continue outpatient f/up with neurologist Dr. Hoffman DVT Prophylaxis: Lovenox sq Discharge Planning Discharge patient to home Condition on discharge: Stable Heart Healthy Diet as tolerated Ad Maggi activity Rx written: discontinue HCTZ, no new meds Follow-up with primary care physician Dr. Ward, commercial photographer Dr. Wilson, and neurologist Dr. Hoffman Problem Qualifiers (1) Syncope: Qualified Codes: R55 - Syncope and collapse Shanda Mann PA-C Jul 21, 2017 9:45 am
== END 2017-07-21 11:41 | disposition home or self-care (01) ==
LOC: NEPE 09:06 → NEDA 11:01 → NEPHCDU 13:28
PROVIDERS: ADMIT Hospitalist; ATTEND Hospitalist
DX: R55 Syncope and collapse (principal); I25.10 Atherosclerotic heart disease of native coronary artery without angina pectoris; I10 Essential (primary) hypertension; I65.22 Occlusion and stenosis of left carotid artery; E78.5 Hyperlipidemia, unspecified; Z86.73 Personal history of transient ischemic attack (TIA), and cerebral infarction without residual deficits; I25.82 Chronic total occlusion of coronary artery; G25.0 Essential tremor; I25.2 Old myocardial infarction; R61 Generalized hyperhidrosis; Z95.1 Presence of aortocoronary bypass graft; F41.9 Anxiety disorder, unspecified; F32.9 Major depressive disorder, single episode, unspecified; E78.00 Pure hypercholesterolemia, unspecified; Z79.899 Other long term (current) drug therapy; I44.0 Atrioventricular block, first degree; R94.31 Abnormal electrocardiogram [ECG] [EKG]
CPT/HCPCS: 70450; 71010; 80048; 82550; 83735; 83880; 84484; 85025; 85610; 85730; 93005; 96360; 99285; G0378; J7040

== ENCOUNTER 2017-10-03 09:45 | Emergency (ER) | payer MEDICARE, OTHER ==
[~2017-10-03] VITALS: Ht 172.7 cm; Wt 95.0 kg
[~2017-10-03 09:45] MED LIST changes: +BENZ100 PO; +DIOV160T6 PO; -VALS160T6 PO
[2017-10-03 10:01] VITALS: BP 155/93; PULSE 75; RESP 20; TEMP 98.8; O2SAT 97
[2017-10-03 10:10] VITALS: RESP 18; O2SAT 97
[2017-10-03] MEDS ORDERED: AMLO1TAB84 PO (10:15)
[2017-10-03] MEDS ORDERED: HYDR12.56 PO (10:16)
[2017-10-03] MEDS ORDERED: SODIUM CHLORIDE 0.9% FLUSH 10 ML FLUSH IVF PRN (10:30)
--- NOTE | 2017-10-03 10:35 | PD ---
HPI Chief Complaint: Respiratory Symptoms Time Seen by Provider: 10:01 Travel History International Travel<30 days: No Contact w/Intl Traveler<30days: No Traveled to known affect area: No History of Present Illness HPI This patient reports history of chronic bronchitis. He has never smoked. He went to urgent care center a few days ago and had a chest x-ray and is not taking antibiotics and breathing inhaler and cough medication. He saw his primary physician yesterday. He says that he came in today because his legs became swollen overnight. He is not having redness or warmth or fever or pain. They are symmetric in appearance. He typically does not have leg swelling. He takes no diuretics. Symptom severity is moderate. No alleviating factors. No exacerbating factors. Duration one day PFSH Past Medical History Hx Anticoagulant Therapy: Yes Arthritis: Yes Anxiety: Yes Depression: Yes Heart Rhythm Problems: Yes (HX of ROBI ) Cancer: Yes (SKIN) Cardiac Catheterization: Yes Cardiovascular Problems: Yes (htn on meds, [place], bypass) High Cholesterol: Yes Chest Pain: Yes Cerebrovascular Accident: Yes (tia) Coronary Artery Disease: Yes Diabetes: No (PRE) Patient Takes Glucophage: No Diminished Hearing: Yes (bilateral hearing aids) Endocrine: No Gastrointestinal Disorders: No Genitourinary: No Hypertension: Yes Immune Disorder: No Musculoskeletal: No Neurologic: Yes (TIA 2016 NO DEFICITS, ESSENTIAL TREMOR) Psychiatric: Yes Reproductive: No Respiratory: No Immunizations Current: No Myocardial Infarction: Yes Tetanus Vaccination: < 5 Years Influenza Vaccination: Yes Past Surgical History Cardiac Surgery: Yes (CABG 2001, 1992) Coronary Artery Bypass Graft: Yes (IN 1992 X 3 ,IN 2001 X 4 .) Other Surgery: Yes Social History Alcohol Use: Yes (denies) Tobacco Use: No (QUIT 14 YEARS AGO ) Substance Use: No Allergies-Medications (Allergen,Severity, Reaction): Coded Allergies: clopidogrel (Unverified Allergy, Severe, Rash, 10/03/17) SEVERE ITCHING penicillin G (Unverified Allergy, Mild, A CHILD, 10/03/17) Reported Meds & Prescriptions Reported Meds & Active Scripts Active Diovan (Valsartan) 160 Mg Tab 160 Mg PO DAILY Meclizine (Meclizine HCl) 25 Mg Tab 25 Mg PO TID PRN Reported [facility] Chest Congesti (Guaifenesin) 100 Mg/5 Ml Liq 10-20 Ml PO Q4HR PRN Ventolin Hfa 18 GM Inh (Albuterol Sulfate) 90 Mcg/Act Aer 2 Puff INH Q4-6H PRN Hydromet Liq (Hydrocodone Bit/Homatropine Methylb) 5-1.5 Mg/5 Ml Syrp 5 Ml PO Q4H Doxycycline Hyclate 100 Mg Cap 100 Mg PO BID Hydrochlorothiazide 12.5 Mg Tab 12.5 Mg PO DAILY Amlodipine-Atorvastatin 10-40 Mg Tab 1 Tab PO DAILY Gabapentin 100 Mg Cap 100 Mg PO TID Ranexa ER 12 HR (Ranolazine) 500 Mg Tab 500 Mg PO BID B-12 (Cyanocobalamin) 1,000 Mcg Subl 1,000 Mcg SL DAILY Dipyridamole-Aspirin 200-25 Mg Cap 1 Cap PO BID Propranolol (Propranolol HCl) 20 Mg Tab 20 Mg PO TID Nitroglycerin SL (Nitroglycerin) 0.4 Mg Subl 0.4 Mg SL DIRECTED PRN ONE TABLET UNDER THE TONGUE NEEDED FOR CHEST PAIN, MAY REPEAT EVERY FIVE MINUTES FOR A TOTAL OF 3 DOSES OR CALL 911 IF NO RELIEF Citalopram (Citalopram Hydrobromide) 10 Mg Tab 10 Mg PO DAILY Review of Systems General / Constitutional: No: Fever Eyes: No: Visual changes HENT: Positive: Congestion, No: Headaches Cardiovascular: Positive: Edema, No: Chest Pain or Discomfort Respiratory: Positive: Cough, Wheezing, No: Shortness of Breath Gastrointestinal: No: Abdominal Pain Genitourinary: No: Dysuria Musculoskeletal: Positive: Edema, No: Pain Skin: No Rash Neurologic: No: Weakness Psychiatric: No: Depression Endocrine: No: Polydipsia Hematologic/Lymphatic: No: Easy Bruising Physical Exam Narrative GENERAL: Well-nourished, well-developed patient in no apparent distress. SKIN: Focused skin assessment reveals no rash and nodules. Skin is Warm and dry. HEAD: Atraumatic. Normocephalic. EYES: Pupils equal and round. No scleral icterus. No injection or drainage. ENT: No nasal bleeding or discharge. Mucous membranes pink and moist. NECK: Trachea midline. No JVD. CARDIOVASCULAR: Regular rate and rhythm. No murmur appreciated. RESPIRATORY: No accessory muscle use. Occasional rhonchi . Breath sounds equal bilaterally. GASTROINTESTINAL: Abdomen soft, non-tender, nondistended. Hepatic and splenic margins not palpable. MUSCULOSKELETAL: No obvious deformities. No clubbing. No cyanosis. Symmetric edema from the knees down. No redness or warmth or tenderness. Edema is mild to moderate. No pitting NEUROLOGICAL: Awake and alert. No obvious cranial nerve deficits. Motor grossly within normal limits. Normal speech. PSYCHIATRIC: Appropriate mood and affect; insight and judgment normal Data Data Last Documented VS Vital Signs Date Time Temp Pulse Resp B/P (MAP) Pulse Ox O2 Delivery O2 Flow Rate FiO2 10/03/17 11:13 67 18 140/67 (91) 96 Room Air 10/03/17 10:01 98.8 Orders Orders Complete Blood Count With Diff (10/03/17 10:22) Comprehensive Metabolic Panel (10/03/17 10:22) B-Type Natriuretic Peptide (10/03/17 10:22) Iv Access Insert/Monitor (10/03/17 10:22) Electrocardiogram (10/03/17 10:22) Ecg Monitoring (10/03/17 10:22) Oximetry (10/03/17 10:22) Chest, Single Ap (10/03/17 10:22) Sodium Chloride 0.9% Flush (Ns Flush) (10/03/17 10:30) Potassium Chloride Eff (K-Lyte Cl Eff) (10/03/17 11:00) Labs Laboratory Tests Test 10/03/17 10:25 White Blood Count 14.0 TH/MM3 Red Blood Count 4.49 MIL/MM3 Hemoglobin 14.2 GM/DL Hematocrit 41.4 % Mean Corpuscular Volume 92.0 FL Mean Corpuscular Hemoglobin 31.7 PG Mean Corpuscular Hemoglobin Concent 34.4 % Red Cell Distribution Width 12.9 % Platelet Count 321 TH/MM3 Mean Platelet Volume 8.0 FL Neutrophils (%) (Auto) 79.2 % Lymphocytes (%) (Auto) 16.0 % Monocytes (%) (Auto) 2.9 % Eosinophils (%) (Auto) 1.3 % Basophils (%) (Auto) 0.6 % Neutrophils # (Auto) 11.1 TH/MM3 Lymphocytes # (Auto) 2.2 TH/MM3 Monocytes # (Auto) 0.4 TH/MM3 Eosinophils # (Auto) 0.2 TH/MM3 Basophils # (Auto) 0.1 TH/MM3 CBC Comment DIFF FINAL Differential Comment Blood Urea Nitrogen 11 MG/DL Creatinine 0.87 MG/DL Random Glucose 97 MG/DL Total Protein 7.8 GM/DL Albumin 3.0 GM/DL Calcium Level 8.5 MG/DL Alkaline Phosphatase 61 U/L Aspartate Amino Transf (AST/SGOT) 25 U/L Alanine Aminotransferase (ALT/SGPT) 48 U/L Total Bilirubin 0.8 MG/DL Sodium Level 140 MEQ/L Potassium Level 3.0 MEQ/L Chloride Level 105 MEQ/L Carbon Dioxide Level 27.9 MEQ/L Anion Gap 7 MEQ/L Estimat Glomerular Filtration Rate 87 ML/MIN B-Type Natriuretic Peptide 113 PG/ML MDM Medical Decision Making Medical Screen Exam Complete: Yes Emergency Medical Condition: Yes Medical Record Reviewed: Yes Differential Diagnosis Pulmonary edema, renal failure, bronchitis, pneumonia Narrative Course I have reviewed the patient's electronic medical record. I reviewed his EKG which shows sinus rhythm without ST elevation or ectopy I reviewed his chest x-ray I sent some lab studies to evaluate liver and renal function and BNP No clinical suspicion of cellulitis or DVT, very symmetric appearance to these legs Metabolic studies show hypokalemia which I replaced orally BNP is 113, not suspicious for heart failure The chest x-ray shows no pneumonia or pulmonary edema. There is some atelectasis He has some nonspecific leukocytosis He is stable for outpatient follow-up I do not see any sign of bacterial infection here He is on antibiotics regardless Advised to elevate legs and use low-sodium diet and wear knee-high compression stockings and follow-up with primary care Diagnosis Primary Impression: Leg edema Additional Impressions: Acute viral bronchitis CAD (coronary artery disease) Qualified Codes: I25.10 - Atherosclerotic heart disease of [place] coronary artery without angina pectoris; I25.84 - Coronary atherosclerosis due to calcified coronary lesion History of coronary artery bypass graft Hypokalemia Additional Instructions: The patient was advised to follow up with their physician and return if they worsen. Wear knee-high compression stockings Have low-sodium diet Elevate legs Med/Other Pt SpecificInfo: Other Disposition: 01 DISCHARGE HOME Condition: Stable Jae Guerrero MD Oct 03, 2017 10:35
[2017-10-03] MEDS ORDERED: VENTAER INH (10:36)
[2017-10-03] MEDS ORDERED: HYCOS PO (10:36)
[2017-10-03] MEDS ORDERED: DOXY100C PO (10:36)
[2017-10-03] MEDS ORDERED: GUAI1LIQ PO (10:36)
[2017-10-03 10:39] LABS: AUTOMATED NEUTROPHIL # 11.1 TH/MM3 (1.8-7.7); BASOPHIL # 0.1 TH/MM3 (0-0.2); BASOPHIL % 0.6 % (0.0-2.0); EOSINOPHIL # 0.2 TH/MM3 (0-0.4); EOSINOPHIL % 1.3 % (0.0-4.0); HEMATOCRIT 41.4 % (39.0-51.0); HEMOGLOBIN 14.2 GM/DL (13.0-17.0); LYMPHOCYTE # 2.2 TH/MM3 (1.0-4.8); MEAN CORPUSCULAR HEMOGLOBIN 31.7 PG (27.0-34.0); MEAN CORPUSCULAR HGB CONC 34.4 % (32.0-36.0); MONO % 2.9 % (0.0-8.0); MONOCYTE # 0.4 TH/MM3 (0-0.9); NEUT % 79.2 % (16.0-70.0); PLATELET COUNT 321 TH/MM3 (150-450); RED BLOOD COUNT 4.49 MIL/MM3 (4.50-5.90); RED CELL DISTRIBUTION WIDTH 12.9 % (11.6-17.2)
[2017-10-03 10:40] LABS: CHLORIDE 105 MEQ/L (98-107); SODIUM (NA) 140 MEQ/L (136-145)
[2017-10-03 10:44] LABS: BICARBONATE 27.9 MEQ/L (21.0-32.0); BLOOD UREA NITROGEN 11 MG/DL (7-18); CALCIUM 8.5 MG/DL (8.5-10.1); GLUCOSE,RANDOM 97 MG/DL (74-106)
[2017-10-03 10:47] LABS: ALT (GPT) 48 U/L (12-78); AST (GOT) 25 U/L (15-37); CREATININE 0.87 MG/DL (0.60-1.30); GLOMERULAR FILTRATION RATE 87 ML/MIN (>89)
[2017-10-03 10:49] LABS: TOTAL BILIRUBIN ADULT 0.8 MG/DL (0.2-1.0); TOTAL PROTEIN 7.8 GM/DL (6.4-8.2)
[2017-10-03 10:50] LABS: ALKALINE PHOSPHATASE 61 U/L (45-117)
[2017-10-03 10:59] VITALS: BP 133/66; PULSE 65; RESP 16; O2SAT 96
[2017-10-03] MEDS ORDERED: POTASSIUM CHLORIDE 25 MEQ EFFERVESCENT TAB PO ONE (11:00)
--- NOTE | 2017-10-03 11:11 | RADRPT ---
EXAM DATE/TIME: 10/03/2017 10:42 [facility] COMPARISON: CHEST SINGLE AP, July 20, 2017, 9:31. INDICATIONS : Cough, short of breath. MEDICAL HISTORY : Cerebrovascular disease. Myocardial infarction. Diabetes mellitus type II. Hypertension. SURGICAL HISTORY : CABG. ENCOUNTER: Initial ACUITY: 2 weeks PAIN SCORE: 0/10 LOCATION: Bilateral chest FINDINGS: Postoperative CABG. Minimal basilar atelectasis or scarring. No consolidation or effusion. No pneumot horax. CONCLUSION: 1. Minimal basilar atelectasis or scarring. Postop CABG. Jose Richter MD on October 03, 2017 at 11:08 Board Certified Radiologist. This report was verified electronically.
[2017-10-03 11:13] VITALS: BP 140/67; PULSE 67; RESP 18; O2SAT 96
--- NOTE | 2017-10-03 22:58 | EKG ---
Date Performed: 10/03/2017 Time Performed: 09:51:15 PTAGE: 67 years EKG: Sinus rhythm NONSPECIFIC ST & T-WAVE ABNORMALITY BORDERLINE ECG NO PREVIOUS TRACING DOCTOR: Babar Melgar Interpretating Date/Time 10/03/2017 22:56:25
== END 2017-10-03 12:08 | disposition home or self-care (01) ==
LOC: PHED 09:45
DX: R60.0 Localized edema (principal); J20.8 Acute bronchitis due to other specified organisms; I25.10 Atherosclerotic heart disease of native coronary artery without angina pectoris; I25.84 Coronary atherosclerosis due to calcified coronary lesion; E87.6 Hypokalemia; E78.00 Pure hypercholesterolemia, unspecified; I10 Essential (primary) hypertension; Z87.891 Personal history of nicotine dependence
CPT/HCPCS: 71045; 80053; 83880; 85025; 93005; 99285

== ENCOUNTER 2018-02-18 11:50 | Observation (INO) ==
--- NOTE | 2018-02-18 12:13 | ED ---
HPI General Chief Complaint: Chest Pain Stated Complaint: Cheat pain/lightheaded x1hr Time Seen by Provider: 02/18/18 11:50 Related Data Home Medications Medication Instructions Recorded Confirmed Ranexa 500 mg PO BID 02/18/18 02/18/18 Vitamin B-12 1,000 mg PO DAILY 02/18/18 02/18/18 amlodipine-atorvastatin 10 - 80 mg PO DAILY 02/18/18 02/18/18 aspirin-dipyridamole 25 - 200 mg PO DAILY 02/18/18 02/18/18 citalopram 10 mg PO DAILY 02/18/18 02/18/18 gabapentin 100 mg PO TID 02/18/18 02/18/18 hydrochlorothiazide 12.5 mg PO DAILY 02/18/18 02/18/18 losartan 50 mg PO DAILY 02/18/18 02/18/18 propranolol 20 mg PO TID 02/18/18 02/18/18 trazodone 50 mg PO DAILY 02/18/18 02/18/18 Allergies Allergy/AdvReac Type Severity Reaction Status Date / Time clopidogrel Allergy Severe Rash Verified 02/18/18 12:09 penicillin G Allergy Mild A CHILD Verified 02/18/18 12:09 Review of Systems Except as stated in HPI: all other systems reviewed are negative (Patient presents with substernal pressure without radiation of 3 out of 10 1 hour prior to arrival persists until arrival that is now 1 out of 10. Patient had identical symptoms with his 2 previous heart attacks. Patient also had a TIA 2 years ago.) [facility] Medical History Medical History Hx of hyperlipidemia (Acute) Hx of primary hypertension (Acute) Hx of transient ischemic attack (TIA) (Acute) Surgical History Surgical History Hx of heart bypass surgery (Acute) Social History Social History Substance History: No History of Abuse Second Hand Smoke Exposure: No Smoking Status: Never smoker How Often Do You Have a Drink Containing Alcohol: Monthly or less Recent Travel in [facility] within the Last 8 Weeks: No Recent Out of Country Travel within the Last 8 Weeks: No Immunization History Tetanus Immunization: <5 Years Hx Influenza Vaccine This Season: Yes Exam Narrative Exam Narrative: GENERAL: Alert and oriented 3 SKIN: Focused skin assessment warm/dry. HEAD: Atraumatic. Normocephalic. EYES: Pupils equal and round. No scleral icterus. No injection or drainage. ENT: No nasal bleeding or discharge. Mucous membranes pink and moist. NECK: Trachea midline. No JVD. CARDIOVASCULAR: Regular rate and rhythm. No murmur appreciated. 3 mm pretibial edema bilaterally RESPIRATORY: No accessory muscle use. Clear to auscultation. Breath sounds equal bilaterally. GASTROINTESTINAL: Abdomen soft, non-tender, nondistended. Hepatic and splenic margins not palpable. MUSCULOSKELETAL: No obvious deformities. No clubbing. No cyanosis. No edema. NEUROLOGICAL: Awake and alert. No obvious cranial nerve deficits. Motor grossly within normal limits. Normal speech. PSYCHIATRIC: Appropriate mood and affect; insight and judgment normal. Course Reevaluation(s) Reevaluation #1: Patient discussed with hospitalist and admitted for further evaluation and observation unit Time: 13:51 Initial Documented Vital Signs Temperature 98.5 F 02/18/18 12:02 Pulse Rate 62 02/18/18 12:02 Respiratory Rate 16 02/18/18 12:02 Blood Pressure 140/75 02/18/18 12:02 Pulse Oximetry 98 02/18/18 12:02 Last Documented Vital Signs Temperature 98.5 F 02/18/18 12:02 Pulse Rate 63 02/18/18 13:29 Respiratory Rate 16 02/18/18 13:29 Blood Pressure 122/68 02/18/18 13:29 Pulse Oximetry 97 02/18/18 13:29 Critical Care Time Critical Care Time: Yes (50) Total Critical Care Time: 50 Attestation: n/a Medical Decision Making Lab Data Result diagrams: 02/18/18 12:30 02/18/18 12:30 Lab Results 02/18/18 02/18/18 02/18/18 Range/Units 12:30 12:30 12:30 CBC w Diff Auto diff final WBC 9.4 (4.0-11.0) th/mm3 RBC 4.75 (4.50-5.90) mil/mm3 Hgb 14.5 (13.0-17.0) gm/dL Hct 44.3 (39.0-51.0) % MCV 93.3 (80.0-100.0) fL MCH 30.5 (27.0-34.0) pg MCHC 32.7 (32.0-36.0) % RDW 13.5 (11.6-17.2) % Plt Count 246 (150-450) th/mm3 MPV 8.5 (7.0-11.0) fL Neut % (Auto) 57.8 (16.0-70.0) % Lymph % (Auto) 24.8 (9.0-44.0) % [place] % (Auto) 8.5 H (0.0-8.0) % Eos % (Auto) 6.0 H (0.0-4.0) % Baso % (Auto) 2.9 H (0.0-2.0) % Neut # (Auto) 5.4 (1.8-7.7) th/mm3 Lymph # (Auto) 2.3 (1.0-4.8) th/mm3 [place] # (Auto) 0.8 (0.0-0.9) th/mm3 Eos # (Auto) 0.6 H (0.0-0.4) th/mm3 Baso # (Auto) 0.3 H (0.0-0.2) th/mm3 WBC Differential . Differential Comment . PT 10.6 (9.8-11.6) sec INR 1.0 Ratio APTT 25.9 (24.3-30.1) sec Sodium 139 (136-145) meq/L Potassium 3.5 (3.5-5.1) meq/L Chloride 103 (98-107) meq/L Carbon Dioxide 26.7 (21.0-32.0) meq/L Anion Gap 9 (5-15) meq/L BUN 12 (7-18) mg/dL Creatinine 1.30 (0.60-1.30) mg/dL Estimated GFR 55 L (>89) mL/min Random Glucose 133 H (74-106) mg/dL Calcium 9.1 (8.5-10.1) mg/dL Troponin I Less than 0.02 L (0.02-0.05) ng/mL Imaging Data Radiologist's impression: Chest X-Ray 02/18/18 12:07 CONCLUSION: No acute abnormality is seen. Discharge Plan Discharge Disposition Patient Disposition: 30 Still Patient Physicians Team ED Provider: José Cisse Primary Care Provider: Lori Valenzuela Rxs /Orders / Referrals /Forms Prescriptions: No Action Ranexa 500 mg PO BID RF: 0 Vitamin B-12 1,000 mg PO DAILY RF: 0 amlodipine-atorvastatin 10 - 80 mg PO DAILY RF: 0 aspirin-dipyridamole 25 - 200 mg PO DAILY RF: 0 citalopram 10 mg PO DAILY RF: 0 gabapentin 100 mg PO TID RF: 0 hydrochlorothiazide 12.5 mg PO DAILY RF: 0 losartan 50 mg PO DAILY RF: 0 propranolol 20 mg PO TID RF: 0 trazodone 50 mg PO DAILY RF: 0 Discharge Instructions Patient Printed Instructions: Chest Pain (ED) Status ED Status: With Doctor
--- NOTE | 2018-02-18 12:39 | XR ---
EXAM DATE: 02/18/2018 12:25 PM EDT AGE/SEX: 67 years / Male INDICATIONS: Chest pain CLINICAL DATA: This is the patient's initial encounter. Patient reports that signs and symptoms have been present for 1 day and indicates a pain score of 5/10. MEDICAL/SURGICAL HISTORY: Hypertension. Transient ischemic attack. CABG. COMPARISON: No prior exams available for comparison. FINDINGS: The patient is status post sternotomy. The heart size is mildly enlarged. The lungs are grossly clear . No effusion is seen. CONCLUSION: No acute abnormality is seen. Electronically signed by: Eduardo Hickman MD 02/18/2018 12:38 PM EDT
[2018-02-18 12:41] LABS: Baso # (Auto) 0.3 th/mm3 (0.0-0.2); Baso % (Auto) 2.9 % (0.0-2.0); Eos # (Auto) 0.6 th/mm3 (0.0-0.4); Hematocrit 44.3 % (39.0-51.0); Hemoglobin 14.5 gm/dL (13.0-17.0); Lymph # (Auto) 2.3 th/mm3 (1.0-4.8); Lymph % (Auto) 24.8 % (9.0-44.0); Mean Corpuscular HGB Conc 32.7 % (32.0-36.0); Mean Corpuscular Hemoglobin 30.5 pg (27.0-34.0); Mean Corpuscular Volume 93.3 fL (80.0-100.0); Mean Platelet Volume 8.5 fL (7.0-11.0); Mono # (Auto) 0.8 th/mm3 (0.0-0.9); Mono % (Auto) 8.5 % (0.0-8.0); Neut # (Auto) 5.4 th/mm3 (1.8-7.7); Neut % (Auto) 57.8 % (16.0-70.0); Platelet Count 246 th/mm3 (150-450); Red Blood Count 4.75 mil/mm3 (4.50-5.90); Red Cell Distribution Width 13.5 % (11.6-17.2); White Blood Count 9.4 th/mm3 (4.0-11.0)
[2018-02-18 12:53] LABS: Chloride 103 meq/L (98-107); Potassium 3.5 meq/L (3.5-5.1); Sodium 139 meq/L (136-145)
[2018-02-18 12:55] LABS: Calcium 9.1 mg/dL (8.5-10.1)
[2018-02-18 12:56] LABS: Anion Gap 9 meq/L (5-15); Blood Urea Nitrogen 12 mg/dL (7-18); Carbon Dioxide 26.7 meq/L (21.0-32.0); Glucose,Random 133 mg/dL (74-106)
[2018-02-18 12:59] LABS: Glomerular Filtration Rate 55 mL/min (>89)
[2018-02-18 13:21] LABS: Activated Partial Thrombo Time 25.9 sec (24.3-30.1); Prothrombin Time 10.6 sec (9.8-11.6)
--- NOTE | 2018-02-18 14:34 | P.HP ---
History of Present Illness Primary Care Physician: Lori Valenzuela DO Chief Complaint: Chest pain History of Present Illness: Pt is a pleasant 67 y.o male with a hx of MIx2, CABG in 1992 and 2001 who presents to the hospital with cc of CP. He states that today at 11 am he started having pressure like L sided CP. pain was 5/10, non-radiating and was associated with mild SOB, and nausea. Denies radiation of pain, or diaphoresis. He states that this pain was very similar to the pain he had with previous heart attacks. After 10 minutes, pain subsided to 1/10 and after taking 2 NTG at the ED it completely went away. Last year he had a heart catheterization following CP, that revealed severe CAD with 3/4 patent vessels. Review of Systems All other systems reviewed negative except as stated in HPI PMFSH - History History Provided By: Patient - Medical History Medical History: Medical History (Last Reviewed 02/18/18 @ 12:20 by José Cisse MD) Hx of hyperlipidemia Hx of primary hypertension Hx of transient ischemic attack (TIA) - Surgical History Surgical History: Surgical History (Last Reviewed 02/18/18 @ 12:20 by José Cisse MD) Hx of heart bypass surgery - Tobacco History Second Hand Smoke Exposure: No Tobacco Use In Past 30 Days: No Smoking Status: Never smoker - Alcohol History How Often Do You Have a Drink Containing Alcohol: Monthly or less - Substance Use History Substance History: No History of Abuse - Travel History Recent Travel in the [place] Within the Last 8 Weeks: No Recent Travel Out of the Country Within the Last 8 Weeks: No - Immunization History Tetanus Immunization: <5 Years Hx Influenza Vaccine This Season: Yes Medications and Allergies Active Medications: Active Medications Sodium Chloride (Ns Flush) 2 ml IV.FLUSH UNSCH PRN PRN Reason: FLUSH AFTER USING IV ACCESS Allergies Allergy/AdvReac Type Severity Reaction Status Date / Time clopidogrel Allergy Severe Rash Verified 02/18/18 12:09 penicillin G Allergy Mild A CHILD Verified 02/18/18 12:09 Home Medications Medication Instructions Recorded Confirmed Type Ranexa 500 mg PO BID 02/18/18 02/18/18 History Vitamin B-12 1,000 mg PO DAILY 02/18/18 02/18/18 History amlodipine-atorvastatin 10 - 80 mg PO DAILY 02/18/18 02/18/18 History aspirin-dipyridamole 25 - 200 mg PO DAILY 02/18/18 02/18/18 History citalopram 10 mg PO DAILY 02/18/18 02/18/18 History gabapentin 100 mg PO TID 02/18/18 02/18/18 History hydrochlorothiazide 12.5 mg PO DAILY 02/18/18 02/18/18 History losartan 50 mg PO DAILY 02/18/18 02/18/18 History propranolol 20 mg PO TID 02/18/18 02/18/18 History trazodone 50 mg PO DAILY 02/18/18 02/18/18 History Exam Vital signs: Vital Signs 02/18/18 12:02 02/18/18 12:07 02/18/18 12:38 Temperature 98.5 F Pulse Rate 62 60 Respiratory Rate 16 16 16 Blood Pressure 140/75 130/70 Pulse Oximetry 98 95 02/18/18 12:59 02/18/18 13:29 Temperature Pulse Rate 63 Respiratory Rate 18 16 Blood Pressure 122/68 Pulse Oximetry 97 Intake & Output 02/17/18 02/18/18 02/18/18 18:59 06:59 18:59 Weight 98 kg Narrative: GENERAL: well developed, well nourish male in no acute distress SKIN: Warm and dry. HEAD: Atraumatic. Normocephalic. EYES: Pupils equal and round. No scleral icterus. No injection or drainage. ENT: No nasal bleeding or discharge. Mucous membranes pink and moist. NECK: Trachea midline. No JVD. CARDIOVASCULAR: Regular rate and rhythm. No murmurs, rubs, or gallops. No S3, or S4 RESPIRATORY: No accessory muscle use. Clear to auscultation. Breath sounds equal bilaterally. GASTROINTESTINAL: Abdomen soft, non-tender, nondistended. Hepatic and splenic margins not palpable. MUSCULOSKELETAL: Extremities without clubbing, cyanosis, or edema. No obvious deformities. NEUROLOGICAL: Awake and alert. No obvious cranial nerve deficits. Motor grossly within normal limits. Moderate resting tremor. Five out of 5 muscle strength in the arms and legs. Normal speech. PSYCHIATRIC: Appropriate mood and affect; insight and judgment normal. Results - Labs CBC & Chem 7: 02/18/18 12:30 02/18/18 12:30 Labs: Laboratory Results - last 24 hr 02/18/18 02/18/18 02/18/18 12:30 12:30 12:30 CBC w Diff Auto diff final WBC 9.4 RBC 4.75 Hgb 14.5 Hct 44.3 MCV 93.3 MCH 30.5 MCHC 32.7 RDW 13.5 Plt Count 246 MPV 8.5 Neut % (Auto) 57.8 Lymph % (Auto) 24.8 [place] % (Auto) 8.5 H Eos % (Auto) 6.0 H Baso % (Auto) 2.9 H Neut # (Auto) 5.4 Lymph # (Auto) 2.3 [place] # (Auto) 0.8 Eos # (Auto) 0.6 H Baso # (Auto) 0.3 H WBC Differential . Differential Comment . PT 10.6 INR 1.0 APTT 25.9 Sodium 139 Potassium 3.5 Chloride 103 Carbon Dioxide 26.7 Anion Gap 9 BUN 12 Creatinine 1.30 Estimated GFR 55 L Random Glucose 133 H Calcium 9.1 Troponin I Less than 0.02 L - Imaging Impressions Chest X-Ray 02/18/18 12:07 CONCLUSION: No acute abnormality is seen. Caprini VTE Risk Assessment Caprini Risk Assessment Model: Point Value = 1 Point Value = 2 Point Value = 3 Point Value = 5 Age 41-60 Minor surgery BMI > 25 kg/m2 Swollen legs Varicose veins or History of unexplained or recurrent spontaneous Oral contraceptives or hormone replacement Sepsis (< 1 month) Serious lung disease, including pneumonia (< 1 month) Abnormal pulmonary function Acute myocardial infarction Congestive heart failure (< 1 month) History of inflammatory bowel disease Medical patient at bed rest Age 61-74 Arthroscopic surgery Major open surgery (> 45 min) Laparoscopic surgery (> 45 min) Malignancy Confined to bed (> 72 hours) Immobilizing plaster cast Central venous access Age >= 75 History of VTE Family history of VTE Factor V Leiden Prothrombin [id number] Lupus anticoagulant Anticardiolipin antibodies Elevated serum homocysteine Heparin-induced thrombocytopenia Other congenital or acquired thrombophilia Stroke (< 1 month) Elective arthroplasty Hip, pelvis, or leg fracture Acute spinal cord injury (< 1 month) Prophylaxis Regimen: Total Risk Factor Score Risk Level Prophylaxis Regimen 0-1 Low Early ambulation 2 Moderate Order ONE of the following: *Sequential Compression Device (SCD) *Heparin 5000 units SQ BID 3-4 Higher Order ONE of the following medications: *Heparin 5000 units SQ TID *Enoxaparin/Lovenox 40 mg SQ daily (WT < 150 kg, CrCl > 30 mL/min) *Enoxaparin/Lovenox 30 mg SQ daily (WT < 150 kg, CrCl > 10-29 mL/min) *Enoxaparin/Lovenox 30 mg SQ BID (WT < 150 kg, CrCl > 30 mL/min) AND/OR *Sequential Compression Device (SCD) 5 or more Highest Order ONE of the following medications: *Heparin 5000 units SQ TID (Preferred with Epidurals) *Enoxaparin/Lovenox 40 mg SQ daily (WT < 150 kg, CrCl > 30 mL/min) *Enoxaparin/Lovenox 30 mg SQ daily (WT < 150 kg, CrCl > 10-29 mL/min) *Enoxaparin/Lovenox 30 mg SQ BID (WT < 150 kg, CrCl > 30 mL/min) AND *Sequential Compression Device (SCD) Assessment and Plan - Plan Chest pain, Typical Pt has a significant hx of CAD. Troponin was negative and EKG was unchanged from previous. serial troponin and EKG x3 will be obtained. Pt's silver wrapper, Dr. Wilson will be contact and exercise stress test will also be obtained.
[2018-02-18] MEDS ORDERED: Morphine Inj 4 MG/ML Vial IV.PUSH PRN (15:00)
[2018-02-18] MEDS ORDERED: Acetaminophen 500 MG Tablet PO PRN (15:00)
--- NOTE | 2018-02-18 15:25 | P.HPIM ---
History of Present Illness Primary Care Physician: Lori Valenzuela DO Chief Complaint: Chest pain History of Present Illness: This patient is a 59-year-old gentleman with a history of cardiac bypass 2 surgeries 1992 and 2001 and recent cardiac catheterization 2016 showing arterial occlusion. Patient had chest pain today with is left-sided and 5 out of 10. Is not radiating and was however associated with increased shortness of breath. Patient has lower extremity edema and reports gaining 10 pounds in the last several weeks. He notes no fevers or chills or cough. He came to the emergency room for further evaluation and the chest pain was relieved with 2 nitroglycerin. 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 He reports some difficulty sleeping flat due to head congestion but denies orthopnea. Patient is recommended for further evaluation and unstable angina. On my review of his chest x-ray there is no acute cardiopulmonary findings and EKG shows no ischemic changes. - Diagnosis (1) Unstable angina (2) Tremor (3) HTN (hypertension) (4) Hyperlipidemia (5) Anxiety (6) Edema Review of Systems All other systems reviewed negative except as stated in HPI [facility] - History History Provided By: Patient - Medical History Medical History: Medical History (Last Reviewed 02/18/18 @ 15:15 by Nolvia Matias MD) Hx of hyperlipidemia Hx of primary hypertension Hx of transient ischemic attack (TIA) - Surgical History Surgical History: Surgical History (Last Reviewed 02/18/18 @ 15:16 by Nolvia Matias MD) Hx of heart bypass surgery - Tobacco History Second Hand Smoke Exposure: No Tobacco Use In Past 30 Days: No Smoking Status: Never smoker - Alcohol History How Often Do You Have a Drink Containing Alcohol: Monthly or less - Substance Use History Substance History: No History of Abuse - Travel History Recent Travel in the [place] Within the Last 8 Weeks: No Recent Travel Out of the Country Within the Last 8 Weeks: No - Immunization History Tetanus Immunization: <5 Years Hx Influenza Vaccine This Season: Yes Medications and Allergies Active Medications: Active Medications Acetaminophen (Tylenol) 500 mg PO Q4H PRN PRN Reason: HEADACHE Isosorbide Mononitrate (Imdur) 60 mg PO ONCE ONE Stop: 02/18/18 15:04 Morphine Sulfate (Morphine Inj) 2 mg IV.PUSH Q5M PRN PRN Reason: PAIN SCALE 6 TO 10 Nitroglycerin (Nitrostat Sl) 0.4 mg SL Q5M PRN PRN Reason: ANGINA Non-Formulary Medication (Aspirin-Dipyridamole) 25 - 200 mg PO DAILY [facility] Non-Formulary Medication (Citalopram) 10 mg PO DAILY [facility] Non-Formulary Medication (Gabapentin) 100 mg PO TID [facility] Non-Formulary Medication (Hydrochlorothiazide) 12.5 mg PO DAILY [facility] Non-Formulary Medication (Propranolol) 20 mg PO TID [facility] Non-Formulary Medication (Ranexa) 500 mg PO BID [facility] Sodium Chloride (Ns Flush) 2 ml IV.FLUSH UNSCH PRN PRN Reason: FLUSH AFTER USING IV ACCESS Allergies Allergy/AdvReac Type Severity Reaction Status Date / Time clopidogrel Allergy Severe Rash Verified 02/18/18 12:09 penicillin G Allergy Mild A CHILD Verified 02/18/18 12:09 Home Medications Medication Instructions Recorded Confirmed Type Ranexa 500 mg PO BID 02/18/18 02/18/18 History Vitamin B-12 1,000 mg PO DAILY 02/18/18 02/18/18 History amlodipine-atorvastatin 10 - 80 mg PO DAILY 02/18/18 02/18/18 History aspirin-dipyridamole 25 - 200 mg PO DAILY 02/18/18 02/18/18 History citalopram 10 mg PO DAILY 02/18/18 02/18/18 History gabapentin 100 mg PO TID 02/18/18 02/18/18 History hydrochlorothiazide 12.5 mg PO DAILY 02/18/18 02/18/18 History losartan 50 mg PO DAILY 02/18/18 02/18/18 History propranolol 20 mg PO TID 02/18/18 02/18/18 History trazodone 50 mg PO DAILY 02/18/18 02/18/18 History Exam Vital signs: Vital Signs 02/18/18 12:02 02/18/18 12:07 02/18/18 12:38 Temperature 98.5 F Pulse Rate 62 60 Respiratory Rate 16 16 16 Blood Pressure 140/75 130/70 Pulse Oximetry 98 95 02/18/18 12:59 02/18/18 13:29 Temperature Pulse Rate 63 Respiratory Rate 18 16 Blood Pressure 122/68 Pulse Oximetry 97 Intake & Output 02/17/18 02/18/18 02/18/18 18:59 06:59 18:59 Weight 98 kg Narrative: GENERAL: Patient calm resting and without complaints SKIN: Warm and dry. No rashes or ecchymotic injuries EYES: Pupils equal and round. No scleral icterus. No injection or drainage. ENT: External ear exam normal. No acute nasal bleeding or discharge. Mucous membranes pink and moist. CARDIOVASCULAR: Regular rate and rhythm. No murmurs gallops or rubs appreciated RESPIRATORY: Good air flow and effort without accessory muscle use. Clear to auscultation. Breath sounds equal bilaterally. GASTROINTESTINAL: Abdomen soft, non-tender, nondistended. Hepatic and splenic margins not palpable. MUSCULOSKELETAL: Extremities without clubbing, cyanosis, there is +3 leg edema. No obvious deformities. NEUROLOGICAL: Awake and alert. No obvious cranial nerve deficits. Motor grossly within normal limits. Five out of 5 muscle strength in the arms and legs. Normal speech. Results - Labs CBC & Chem 7: 02/18/18 12:30 02/18/18 12:30 Labs: Short CBC 02/18/18 Range/Units 12:30 WBC 9.4 (4.0-11.0) th/mm3 Hgb 14.5 (13.0-17.0) gm/dL Hct 44.3 (39.0-51.0) % Plt Count 246 (150-450) th/mm3 BMP 02/18/18 12:30 Sodium 139 Potassium 3.5 Chloride 103 Carbon Dioxide 26.7 BUN 12 Creatinine 1.30 Calcium 9.1 Cardiac Enzymes 02/18/18 Range/Units 12:30 Troponin I Less than 0.02 L (0.02-0.05) ng/mL - Imaging Impressions Chest X-Ray 02/18/18 12:07 CONCLUSION: No acute abnormality is seen. Caprini VTE Risk Assessment Caprini VTE Risk Assessment: Moderate/High Risk (score >= 2) Caprini Risk Assessment Model: Point Value = 1 Point Value = 2 Point Value = 3 Point Value = 5 Age 41-60 Minor surgery BMI > 25 kg/m2 Swollen legs Varicose veins or History of unexplained or recurrent spontaneous Oral contraceptives or hormone replacement Sepsis (< 1 month) Serious lung disease, including pneumonia (< 1 month) Abnormal pulmonary function Acute myocardial infarction Congestive heart failure (< 1 month) History of inflammatory bowel disease Medical patient at bed rest Age 61-74 Arthroscopic surgery Major open surgery (> 45 min) Laparoscopic surgery (> 45 min) Malignancy Confined to bed (> 72 hours) Immobilizing plaster cast Central venous access Age >= 75 History of VTE Family history of VTE Factor V Leiden Prothrombin [id number] Lupus anticoagulant Anticardiolipin antibodies Elevated serum homocysteine Heparin-induced thrombocytopenia Other congenital or acquired thrombophilia Stroke (< 1 month) Elective arthroplasty Hip, pelvis, or leg fracture Acute spinal cord injury (< 1 month) Prophylaxis Regimen: Total Risk Factor Score Risk Level Prophylaxis Regimen 0-1 Low Early ambulation 2 Moderate Order ONE of the following: *Sequential Compression Device (SCD) *Heparin 5000 units SQ BID 3-4 Higher Order ONE of the following medications: *Heparin 5000 units SQ TID *Enoxaparin/Lovenox 40 mg SQ daily (WT < 150 kg, CrCl > 30 mL/min) *Enoxaparin/Lovenox 30 mg SQ daily (WT < 150 kg, CrCl > 10-29 mL/min) *Enoxaparin/Lovenox 30 mg SQ BID (WT < 150 kg, CrCl > 30 mL/min) AND/OR *Sequential Compression Device (SCD) 5 or more Highest Order ONE of the following medications: *Heparin 5000 units SQ TID (Preferred with Epidurals) *Enoxaparin/Lovenox 40 mg SQ daily (WT < 150 kg, CrCl > 30 mL/min) *Enoxaparin/Lovenox 30 mg SQ daily (WT < 150 kg, CrCl > 10-29 mL/min) *Enoxaparin/Lovenox 30 mg SQ BID (WT < 150 kg, CrCl > 30 mL/min) AND *Sequential Compression Device (SCD) Assessment and Plan - Assessment (1) Unstable angina Code(s): I20.0 - Unstable angina Status: Acute Plan: Patient with known cardiac bypass 2 separate surgeries, no occlusion, will continue with medical management. Continue Ranexa, atorvastatin and aspirin dipyridamole (Plavix allergy), losartan, nitro as needed, and Imdur Care plan discussed with Dr. Crawford cardiology recommended medical management alone given the patient's known coronary disease, high risk for abnormalities on nuclear imaging and limited options for intervention Continue telemetry Follow-up cardiac enzymes and serial EKGs (2) Tremor Code(s): R25.1 - Tremor, unspecified Status: Acute Plan: outpatient follow up with neurology (3) HTN (hypertension) Code(s): I10 - Essential (primary) hypertension Status: Acute Plan: Controlled on hydrochlorothiazide and losartan and amlodipine (4) Hyperlipidemia Code(s): E78.5 - Hyperlipidemia, unspecified Status: Acute Plan: Continue atorvastatin (5) Anxiety Code(s): F41.9 - Anxiety disorder, unspecified Status: Acute Plan: Continue home medications (6) Edema Code(s): R60.9 - Edema, unspecified Status: Acute Plan: bumex x 1, Ins and outs - Plan Likely discharge in a.m.
[2018-02-18] MEDS ORDERED: Isosorbide Mononitrate 60 MG ER 24HR Tablet (Imdur) PO ONE (15:30)
[2018-02-18 16:15] LABS: Creatine Kinase 52 U/L (39-308)
[2018-02-18] MEDS: Gabapentin 100 MG Capsule PO SCH (17:00)
[2018-02-18] MEDS: Ranolazine 500 MG 12HR ER Tablet PO SCH (21:46)
[2018-02-18] MEDS ORDERED: traZODone 50 MG Tablet PO SCH (22:00)
[2018-02-19 00:32] VITALS: O2SAT 95
[2018-02-19 08:58] VITALS: BP 104/57; RESP 16; TEMP 97.5
[2018-02-19] MEDS ORDERED: amLODIPine 10 MG Tablet PO SCH (09:00)
[2018-02-19] MEDS ORDERED: Citalopram 20 MG Tablet PO SCH (09:00)
[2018-02-19] MEDS: Gabapentin 100 MG Capsule PO SCH ×2 (09:11→12:46)
[2018-02-19] MEDS: Ranolazine 500 MG 12HR ER Tablet PO SCH (09:11)
--- NOTE | 2018-02-19 09:41 | P.PN ---
Subjective Interval history: Pt is sitting comfortably on chair. Denies CP, SOB, Fever, chills. He states that he's ready to go home and follow up with accounts receivable coordinator as outpatient Physical Exam Vital signs: Vital Signs 02/18/18 12:02 02/18/18 12:07 02/18/18 12:38 Temperature 98.5 F Pulse Rate 62 60 Respiratory Rate 16 16 16 Blood Pressure 140/75 130/70 Pulse Oximetry 98 95 02/18/18 12:59 02/18/18 13:29 02/18/18 14:00 Temperature Pulse Rate 63 60 Respiratory Rate 18 16 16 Blood Pressure 122/68 142/70 H Pulse Oximetry 97 02/18/18 15:54 02/18/18 16:00 02/18/18 17:16 Temperature 97.5 F L Pulse Rate 58 L 58 L 59 L Respiratory Rate 16 19 Blood Pressure 140/72 150/77 H Pulse Oximetry 99 96 02/18/18 19:15 02/18/18 19:55 02/18/18 20:00 Temperature 97.1 F L Pulse Rate 55 L 54 L Respiratory Rate 21 Blood Pressure 117/60 Pulse Oximetry 95 96 95 02/19/18 00:30 02/19/18 04:00 02/19/18 08:00 Temperature 97.2 F L 97.4 F L 97.5 F L Pulse Rate 60 104 H 62 Respiratory Rate 21 20 16 Blood Pressure 104/5 L 115/60 104/57 L Pulse Oximetry 95 95 95 Intake & Output 02/18/18 02/19/18 02/19/18 18:59 06:59 18:59 Intake Total 600 / 600 240 / 240 Output Total 600 / 600 Balance 600 / 600 -360 / -360 Weight 98 kg Intake: Oral 600 / 600 240 / 240 Output: Urine 600 / 600 Narrative: GENERAL: well developed, well nourished, in no acute distress SKIN: Warm and dry. HEAD: Atraumatic. Normocephalic. EYES: Pupils equal and round. No scleral icterus. No injection or drainage. ENT: No nasal bleeding or discharge. Mucous membranes pink and moist. NECK: Trachea midline. No JVD. CARDIOVASCULAR: Regular rate and rhythm. RESPIRATORY: No accessory muscle use. Clear to auscultation. Breath sounds equal bilaterally. GASTROINTESTINAL: Abdomen soft, non-tender, nondistended. Hepatic and splenic margins not palpable. MUSCULOSKELETAL: Extremities without clubbing, cyanosis, or edema. No obvious deformities. NEUROLOGICAL: Awake and alert. No obvious cranial nerve deficits. Motor grossly within normal limits. Five out of 5 muscle strength in the arms and legs. Normal speech. PSYCHIATRIC: Appropriate mood and affect; insight and judgment normal. Results - Labs CBC & Chem 7: 02/18/18 12:30 02/18/18 12:30 Laboratory Results - last 24 hr 02/18/18 02/18/18 02/18/18 12:30 12:30 12:30 CBC w Diff Auto diff final WBC 9.4 RBC 4.75 Hgb 14.5 Hct 44.3 MCV 93.3 MCH 30.5 MCHC 32.7 RDW 13.5 Plt Count 246 MPV 8.5 Neut % (Auto) 57.8 Lymph % (Auto) 24.8 [place] % (Auto) 8.5 H Eos % (Auto) 6.0 H Baso % (Auto) 2.9 H Neut # (Auto) 5.4 Lymph # (Auto) 2.3 [place] # (Auto) 0.8 Eos # (Auto) 0.6 H Baso # (Auto) 0.3 H WBC Differential . Differential Comment . PT 10.6 INR 1.0 APTT 25.9 Sodium 139 Potassium 3.5 Chloride 103 Carbon Dioxide 26.7 Anion Gap 9 BUN 12 Creatinine 1.30 Estimated GFR 55 L Random Glucose 133 H Calcium 9.1 Total Creatine Kinase Troponin I Less than 0.02 L B-Natriuretic Peptide 02/18/18 02/18/18 02/18/18 15:40 15:40 21:10 CBC w Diff WBC RBC Hgb Hct MCV MCH MCHC RDW Plt Count MPV Neut % (Auto) Lymph % (Auto) [place] % (Auto) Eos % (Auto) Baso % (Auto) Neut # (Auto) Lymph # (Auto) [place] # (Auto) Eos # (Auto) Baso # (Auto) WBC Differential Differential Comment PT INR APTT Sodium Potassium Chloride Carbon Dioxide Anion Gap BUN Creatinine Estimated GFR Random Glucose Calcium Total Creatine Kinase 52 49 Troponin I Less than 0.02 L B-Natriuretic Peptide 162 H - Imaging Impressions Chest X-Ray 02/18/18 12:07 CONCLUSION: No acute abnormality is seen. Assessment and Plan - Plan Chest pain, Typical Pt has a significant hx of CAD. Troponin was negative and EKG was unchanged from previous. serial troponins were negative and serial EKGs were unchanged from previous pt will be managed medically and will follow up with accounts receivable coordinator Coronary Artery Disease, chronic managed medically by accounts receivable coordinator continue home meds Follow up with Dr. Wilson
--- NOTE | 2018-02-19 11:09 | P.PNIM ---
Subjective Interval history: Patient seen and evaluated today in follow-up for chest pain which is likely cardiac. Continue with Imdur Urine output 600 mL with Bumex Physical Exam Vital signs: Vital Signs 02/18/18 12:02 02/18/18 12:07 02/18/18 12:38 Temperature 98.5 F Pulse Rate 62 60 Respiratory Rate 16 16 16 Blood Pressure 140/75 130/70 Pulse Oximetry 98 95 02/18/18 12:59 02/18/18 13:29 02/18/18 14:00 Temperature Pulse Rate 63 60 Respiratory Rate 18 16 16 Blood Pressure 122/68 142/70 H Pulse Oximetry 97 02/18/18 15:54 02/18/18 16:00 02/18/18 17:16 Temperature 97.5 F L Pulse Rate 58 L 58 L 59 L Respiratory Rate 16 19 Blood Pressure 140/72 150/77 H Pulse Oximetry 99 96 02/18/18 19:15 02/18/18 19:55 02/18/18 20:00 Temperature 97.1 F L Pulse Rate 55 L 54 L Respiratory Rate 21 Blood Pressure 117/60 Pulse Oximetry 95 96 95 02/19/18 00:30 02/19/18 04:00 02/19/18 08:00 Temperature 97.2 F L 97.4 F L 97.5 F L Pulse Rate 60 104 H 62 Respiratory Rate 21 20 16 Blood Pressure 104/5 L 115/60 104/57 L Pulse Oximetry 95 95 95 Intake & Output 02/18/18 02/19/18 02/19/18 18:59 06:59 18:59 Intake Total 600 / 600 240 / 240 Output Total 600 / 600 Balance 600 / 600 -360 / -360 Weight 98 kg Intake: Oral 600 / 600 240 / 240 Output: Urine 600 / 600 Other: Date of Last Bowel Movement 02/18/18 Narrative: GENERAL: Well-nourished, well-developed patient. SKIN: Warm and dry. HEAD: Normocephalic. EYES: No scleral icterus. No injection or drainage. NECK: Supple, trachea midline. No JVD or lymphadenopathy. CARDIOVASCULAR: Regular rate and rhythm without murmurs, gallops, or rubs. RESPIRATORY: Breath sounds equal bilaterally. No accessory muscle use. GASTROINTESTINAL: Abdomen soft, non-tender, nondistended. MUSCULOSKELETAL: No cyanosis, but there is some edema remedies bilaterally no CVA tenderness. NEUROLOGICAL: Awake and alert. Cranial nerves II through XII intact. Motor and sensory grossly within normal limits. Five out of 5 muscle strength in all muscle groups. Normal speech. Results - Labs CBC & Chem 7: 02/18/18 12:30 02/18/18 12:30 Laboratory Results - last 24 hr 02/18/18 02/18/18 02/18/18 12:30 12:30 12:30 CBC w Diff Auto diff final WBC 9.4 RBC 4.75 Hgb 14.5 Hct 44.3 MCV 93.3 MCH 30.5 MCHC 32.7 RDW 13.5 Plt Count 246 MPV 8.5 Neut % (Auto) 57.8 Lymph % (Auto) 24.8 [place] % (Auto) 8.5 H Eos % (Auto) 6.0 H Baso % (Auto) 2.9 H Neut # (Auto) 5.4 Lymph # (Auto) 2.3 [place] # (Auto) 0.8 Eos # (Auto) 0.6 H Baso # (Auto) 0.3 H WBC Differential . Differential Comment . PT 10.6 INR 1.0 APTT 25.9 Sodium 139 Potassium 3.5 Chloride 103 Carbon Dioxide 26.7 Anion Gap 9 BUN 12 Creatinine 1.30 Estimated GFR 55 L Random Glucose 133 H Calcium 9.1 Total Creatine Kinase Troponin I Less than 0.02 L B-Natriuretic Peptide 02/18/18 02/18/18 02/18/18 15:40 15:40 21:10 CBC w Diff WBC RBC Hgb Hct MCV MCH MCHC RDW Plt Count MPV Neut % (Auto) Lymph % (Auto) [place] % (Auto) Eos % (Auto) Baso % (Auto) Neut # (Auto) Lymph # (Auto) [place] # (Auto) Eos # (Auto) Baso # (Auto) WBC Differential Differential Comment PT INR APTT Sodium Potassium Chloride Carbon Dioxide Anion Gap BUN Creatinine Estimated GFR Random Glucose Calcium Total Creatine Kinase 52 49 Troponin I Less than 0.02 L B-Natriuretic Peptide 162 H - Imaging Impressions Chest X-Ray 02/18/18 12:07 CONCLUSION: No acute abnormality is seen. Assessment and Plan - Assessment (1) Unstable angina Code(s): I20.0 - Unstable angina Status: Acute Plan: Patient with known cardiac bypass 2 separate surgeries, no occlusion, will continue with medical management. Continue Ranexa, atorvastatin and aspirin dipyridamole (Plavix allergy), losartan, nitro as needed, and Imdur Care plan discussed with Dr. Crawford cardiology recommended medical management alone given the patient's known coronary disease, high risk for abnormalities on nuclear imaging and limited options for intervention Continue telemetry Cardiac enzymes negative EKG unchanged (2) Tremor Code(s): R25.1 - Tremor, unspecified Status: Chronic Plan: outpatient follow up with neurology (3) HTN (hypertension) Code(s): I10 - Essential (primary) hypertension Status: Chronic Plan: Controlled on hydrochlorothiazide and losartan and amlodipine (4) Hyperlipidemia Code(s): E78.5 - Hyperlipidemia, unspecified Status: Chronic Plan: Continue atorvastatin (5) Anxiety Code(s): F41.9 - Anxiety disorder, unspecified Status: Chronic Plan: Continue home medications (6) Edema Code(s): R60.9 - Edema, unspecified Status: Acute Plan: 600 mL output after Bumex - Plan Discharge home Activity unrestricted Diet heart healthy
[2018-02-19 11:13] VITALS: PULSE 88
[2018-02-19] MEDS ORDERED: Isosorbide Mononitrate 60 MG ER 24HR Tablet (Imdur) PO ONE (11:13)
--- NOTE | 2018-02-19 15:33 | ECG ---
Date Performed: 02/18/2018 Time Performed: 11:52:32 PTAGE: 67 years EKG: Sinus rhythm LOW QRS VOLTAGE IN PRECORDIAL LEADS POSSIBLE ANTERIOR MYOCARDIAL INFARCTION BORDERLINE ECG Since the PREVIOUS TRACING , no significant change noted PREVIOUS TRACIN10/03/2017 09.51 DOCTOR: Calvin Sanabria Interpretating Date/Time 02/19/2018 15:31:35
--- NOTE | 2018-02-19 15:33 | ECG ---
Date Performed: 02/18/2018 Time Performed: 20:58:12 PTAGE: 67 years EKG: SINUS BRADYCARDIA WITH OCCASIONAL SUPRAVENTRICULAR PREMATURE COMPLEXES NONSPECIFIC T-WAVE A BNORMALITY BORDERLINE ECG Compared to PREVIOUS TRACING the sinus rate is now slower PREVIOUS TRACIN02/18/2018 11.52 DOCTOR: Calvin Sanabria Interpretating Date/Time 02/19/2018 15:31:51
== END 2018-02-19 12:52 | disposition home or self-care (01) ==
LOC: PHEDA 11:50 → PHED 11:50 → PH3 11:50
PROVIDERS: ADMIT Hospitalist; ATTEND Hospitalist